=== PATIENT | female | born 1945 | race Caucasian/White ===

== ENCOUNTER 2022-10-22 09:48 | Inpatient (IN) | payer MEDICARE, SELFPAY ==
[2022-10-22] VITALS (40 sets, daily range): BP systolic 100–162; BP diastolic 34–98; PULSE 61–136; RESP 3–134; TEMP 37.2–38.1; O2SAT 92–100; BMI 34.2
--- NOTE | 2022-10-22 | ECHO_ITS ---
Patient Info Name: Johana Long Age: 76 years : 1945 Gender: Female Ht: 70 in Wt: 218 lbs BSA: 2.24 m2 HR: 78 bpm BP: 140 / 91 mmHg Heart Rhythm: Atrial Fibrillation Technical Quality: Fair Exam Date: 10/22/2022 3:50 PM Exam Location: [facility] Pulmonary Exam Room: ICU7 Patient Status: Inpatient Admit Date: 10/22/2022 Staff Ordering Physician: Melinda Peñaloza MD [employer] Assistant Principal: Haydee Faye RDCS Attending Provider: Jodi Anderson MD Referring Physician: Anabela HARPER; Exam Type: CA echo dop color flow w con Study Info Indications - PULMONARY EDEMA Complete two-dimensional, color flow and Doppler transthoracic echocardiogram is performed with contrast to opacify the left ventricle and to improve the deliniation of the left ventricle endocardial borders. Contrast/Agitated Saline Amount: 2.00 ml Administered By: Haydee Faye [facility] Existing IV Access: Yes IV Access Condition: patent with no signs of infiltration Summary 1. Left ventricular chamber dimension is mildly enlarged. 2. Left ventricular systolic function is normal, estimated at 65-70%. 3. There is moderately increased left ventricular wall thickness. 4. The left ventricular diastolic function is indeterminate. 5. The basal anteroseptal, and mid anteroseptal are hypokinetic. 6. Left atrial chamber dimension is severely enlarged. 7. There is moderate aortic valve sclerosis. 8. There is mild to moderate mitral valve regurgitation. 9. There is mild tricuspid valve regurgitation. 10. Mild pulmonary hypertension, estimated pulmonary arterial systolic pressure is 38 mmHg. 11. There is mild pulmonic regurgitation. Left Ventricle Left ventricular chamber dimension is mildly enlarged. Left ventricular systolic function is normal, estimated at 65-70%. There is moderately increased left ventricular wall thickness. The left ventricular diastolic function is indeterminate. The basal anteroseptal, and mid anteroseptal are hypokinetic. All other horne appear normal. Right Ventricle Right ventricular chamber dimension is normal. Right ventricular systolic function is normal. Left Atria Left atrial chamber dimension is severely enlarged. Right Atria Right atrial chamber dimension is normal. Atrial Septum Intact interatrial septum visualized by color flow imaging. Aortic Valve The aortic valve is trileaflet. There is moderate aortic valve sclerosis. There is no aortic valve stenosis. There is trace aortic valve regurgitation. Pulmonic Valve The pulmonic valve is normal. There is no pulmonic valve stenosis. There is mild pulmonic regurgitation. Mitral Valve The mitral valve has thickened leaflets. There is no mitral valve stenosis. There is mild to moderate mitral valve regurgitation. Tricuspid Valve The tricuspid valve leaflets are normal. There is no significant tricuspid valve stenosis. There is mild tricuspid valve regurgitation. Mild pulmonary hypertension, estimated pulmonary arterial systolic pressure is 38 mmHg. Pericardium/Pleural The pericardium appears normal. There is no pericardial effusion. Inferior Vena Cava Normal inferior vena cava with <50% collapse upon inspiration consistent with elevated right atrial pressure, 10 mmHg. Aorta The aortic root size at the sinus of Valsalva is normal. Left Ventricular Outflow Tract Name Value Normal
--- NOTE | ~2022-10-22 | XR_ITS ---
EXAMINATION: XR chest 1V portable INDICATION: Respiratory failure TECHNIQUE: Portable AP chest at 0525 hours COMPARISON: 10/30/2022 FINDINGS: A right upper extremity PICC ends with its tip at the superior cavoatrial junction. A mild diffuse interstitial pattern persists with interval improvement. There is a small right pleural effus ion. No pneumothorax is identified. Left basilar airspace opacities are stable. The cardiomediastinal silhouette is unchanged. IMPRESSION: 1. Mild pulmonary edema with interval improvement. 2. Small right pleural effusion. 3. Left basilar airspace opacity, consistent with atelectasis versus pneumonia. Reviewed, dictated and finalized at location A.
--- NOTE | ~2022-10-22 | XR_ITS ---
EXAMINATION: XR chest PICC line INDICATION: Assess PICC position TECHNIQUE: Portable AP chest at 1256 hours COMPARISON: 0546 hours FINDINGS: The endotracheal tube ends approximately 2.4 cm above the shannan. The nasogastric tube is f ollowed as far as the stomach. Its tip is beyond the inferior margin of the radiograph. The right upp er extremity PICC loops in the right internal jugular vein and the tip is now seen within the interna l jugular vein. There are small pleural effusions. Cardiomegaly is noted. A mild diffuse interstitial pattern is stable. Bibasilar airspace opacities are also stable. IMPRESSION: 1. Right upper extremity PICC looping in the distal internal jugular vein with its tip now retracted into the internal jugular vein. 2. Small pleural effusions with associated bibasilar airspace opacities, atelectasis versus pneumonia . 3. Cardiomegaly with stable mild pulmonary edema. Reviewed, dictated and finalized at location A. IMPRESSION: 1. Right upper extremity PICC looping in the distal internal jugular vein with its tip now retracted into the internal jugular vein. 2. Small pleural effusions with associated bibasilar airspace opacities, atelec tasis versus pneumonia. 3. Cardiomegaly with stable mild pulmonary edema.
--- NOTE | ~2022-10-22 | XR_ITS ---
XR chest 1V portable 10/22/2022 11:09 Indication: Apnea Procedure: AP portable chest Comparison: No prior studies for comparison. Findings: Endotracheal tube tip at the shannan. NG tube in the stomach. Cardiomegaly with pulmonary ed andrew. Small right pleural effusion. No pneumothorax. Impression: 1: Cardiomegaly with pulmonary edema. 2: A small right pleural effusion. 3: Endotracheal tube at the shannan. Recommend retraction 4 cm. Reviewed, dictated and finalized at location B. Impression: 1: Cardiomegaly with pulmonary edema. 2: A small right pleural effusion. 3: Endotracheal tube at the shannan. Recommend retraction 4 cm.
--- NOTE | ~2022-10-22 | XR_ITS ---
EXAMINATION: XR chest 1V portable DATE: 10/27/2022 06:59 INDICATION: Acute respiratory failure. TECHNIQUE: A single frontal view of the chest was obtained. COMPARISON: Chest single view 10/26/2022, chest CT 10/17/2022 FINDINGS: A calcified right lung nodule and calcified right hilar lymph nodes are consistent with old granulomatous disease. There are airspace opacities in right mid and lower lung zones and left lower lung zone. There are small pleural effusions. No pneumothorax. Cardiomegaly is noted. The endotrache al tube tip is 2.9 cm above the shannan. The nasogastric tube tip is in the stomach. A right upper ext remity peripherally inserted central venous catheter (PICC) is seen with tip at the superior cavoatri al junction. IMPRESSION: 1. Airspace opacities in right mid and lower lung zones and left lower lung zone with improvement on the right, consistent with atelectasis versus pneumonia. 2. Stable small pleural effusions. 3. Cardiomegaly. Reviewed, dictated and finalized at location A. IMPRESSION: 1. Airspace opacities in right mid and lower lung zones and left lower lung zon e with improvement on the right, consistent with atelectasis versus pneumonia. 2. Stable small pleural effusions. 3. Cardiomegaly.
--- NOTE | ~2022-10-22 | XR_ITS ---
EXAMINATION: XR chest PICC line Exam Date/Time: 10/25/2022 16:21 CDT HISTORY: placement follow up Comparison: Same date at 12:56 PM. RESULT: Lines, tubes, and devices: Replacement/repositioning of the right upper extremity PICC, tip is somew hat difficult to visualize but appears to be in the distal SVC. Endotracheal tube terminates 2.8 cm a chantal the shannan. Subdiaphragmatic NG tube. Lungs and pleura: Persistent bilateral costophrenic angle blunting and patchy areas of subsegmental bibasilar airspace disease. Cardiomediastinal silhouette: Stable. Other: No acute osseous or upper abdominal finding. IMPRESSION: Right upper extremity PICC, in good position. Stable endotracheal and NG tubes. Unchanged bibasilar a telectasis/consolidation. Slightly improved interstitial edema and bilateral effusions, may reflect c hange in positioning. Reviewed, dictated and finalized at location K. IMPRESSION: Right upper extremity PICC, in good position. Stable endotracheal and NG tubes. Unchanged bibasilar atelectasis/consolidation. Slightly improved interstitial edema and bilateral effusions, may reflect change in positioning.
--- NOTE | ~2022-10-22 | CT_ITS ---
EXAMINATION: CT brain wo con DATE: 10/22/2022 11:53 INDICATION: Unresponsive. TECHNIQUE: Computed tomography (CT) of the head was performed without intravenous contrast. The mA wa s adjusted according to patient size. Iterative reconstruction technique was employed. The dose-lengt h product was 681.00 mGy-cm. COMPARISON: None FINDINGS: There is no intracranial hemorrhage, acute infarction, or abnormal intracranial mass lesion . The ventricles are normal in size. There is mucosal thickening in the paranasal sinuses with thicke adwoa and sclerosis of the horne of sphenoid sinus, consistent with chronic sinusitis. The mastoid air cells are normal. There are likely changes of ocular lens replacement surgeries. Endotracheal and or ogastric tubes are noted. IMPRESSION: 1. Normal brain. 2. Chronic sinusitis. Reviewed, dictated and finalized at location A.
--- NOTE | ~2022-10-22 | US_ITS ---
EXAMINATION: US thoracentesis DATE: 10/28/2022 16:43 INDICATION: Right pleural effusion TECHNIQUE: The procedure and its risks and benefits were discussed with the patient. Potential risks discussed included bleeding, infection, and pneumothorax. The patient understood the risks and agreed to proceed. The skin was prepped and draped in sterile fashion. 1% lidocaine was used for local anes thesia. Under ultrasound guidance, a 5 Fr catheter with trochar was advanced into the right pleural e ffusion. Fluid was aspirated. The catheter was removed, and a dressing was applied. There were no imm ediate complications. FINDINGS: Ultrasound images demonstrate a small right pleural effusion and the catheter within the fluid. IMPRESSION: 1. Successful ultrasound-guided thoracentesis yielding 350 mL of dark reddish fluid. Reviewed, dictated and finalized at location A.
--- NOTE | ~2022-10-22 | CT_ITS ---
EXAMINATION: CT diagnostic chest wo con DATE: 10/29/2022 16:19 INDICATION: ? chf TECHNIQUE: Computed tomography (CT) of the chest was performed without intravenous contrast. Addition al 3D reconstructions utilizing coronal maximum intensity projection (MIP) were performed. Automated exposure control and iterative reconstruction technique were employed. The dose-length product was 51 2.58 mGy-cm. COMPARISON: 10/17/2022 FINDINGS: Small posterior layering pleural effusion with compressive atelectasis in the dependent right lower l obe. Trace left pleural effusion and minimal atelectasis in the dependent left lower lobe and lingula . Large calcified right lower lobe nodule along with calcified right hilar lymph nodes and multiple s plenic calcifications, all consistent with old granulomatous disease. No pneumonia, pulmonary edema o r pneumothorax. Cardiomegaly. Aortic valve calcification. No pericardial effusion. Right upper extrem ity peripherally inserted central venous catheter (PICC) tip at the superior cavoatrial junction. Th oracic aorta is normal in caliber. No pathologically enlarged thoracic lymphadenopathy. Small amount of bubbly mucus in the dependent trachea. Visualized portion of the upper abdomen is unremarkable. Sanchez ture anchor at the left humeral head which could be related to either prior rotator cuff repair with bicipital tenodesis. Severe thoracic spondylosis with anterior fusion at T6-T8. IMPRESSION: 1. Small right and trace left pleural effusions with associated atelectasis in the dependent lungs, r ight greater than left. 2. Cardiomegaly. Reviewed, dictated and finalized at location A. IMPRESSION: 1. Small right and trace left pleural effusions with associated atelectasis in the dependent lungs, right greater than left. 2. Cardiomegaly.
--- NOTE | ~2022-10-22 | XR_ITS ---
EXAMINATION: XR chest 1V portable INDICATION: Respiratory failure TECHNIQUE: Portable AP chest at 0546 hours COMPARISON: 10/24/2022 FINDINGS: The endotracheal tube ends approximately 2.6 cm above the shannan. The nasogastric tube is f ollowed as far as the stomach. Its tip is beyond the inferior margin of the radiograph. A right upper extremity PICC is again seen with a small portion of the catheter looped in the right internal jugul ar vein and the tip ending in the right brachiocephalic vein. Bibasilar airspace opacities persist wi th slight worsening on the left. There is no pneumothorax. Cardiomegaly is noted. A mild diffuse inte rstitial pattern is unchanged. IMPRESSION: 1. Cardiomegaly with stable pulmonary edema. 2. Small pleural effusions, with slight worsening on the left, and associated bibasilar airspace opac ities, atelectasis versus pneumonia. 3. Right upper extremity PICC with a short segment looped in the distal internal jugular vein and its tip ending in the brachiocephalic vein. Reviewed, dictated and finalized at location A. IMPRESSION: 1. Cardiomegaly with stable pulmonary edema. 2. Small pleural effusions, with slight worsening on the left, and associated b ibasilar airspace opacities, atelectasis versus pneumonia. 3. Right upper extremity PICC with a short segment looped in the distal interna l jugular vein and its tip ending in the brachiocephalic vein.
--- NOTE | ~2022-10-22 | XR_ITS ---
Portable chest x-ray Comparison: 10/29/2022 Clinical History: Respiratory failure Findings: Right-sided PICC line is in place. There is central congestive change and probable mild pu lmonary edema pattern. Stable calcified right basilar pulmonary nodule. Cardiomediastinal silhouette is stable. Bones and soft tissues are unremarkable. Impression: Central congestive change and mild pulmonary edema. Right-sided PICC line in place. Reviewed, dictated and finalized at location . Impression: Central congestive change and mild pulmonary edema. Right-sided PICC line in place.
--- NOTE | ~2022-10-22 | XR_ITS ---
Portable chest x-ray Comparison: 10/23/2022 Clinical History: Respiratory failure Findings: Endotracheal tube, NG tube, and right-sided PICC line are in place. Small to moderate righ t pleural effusion is present. There is mild to moderate pulmonary edema pattern. Cardiomediastinal silhouette is stable. Bones and soft tissues are unremarkable. Impression: Mild to moderate pulmonary edema pattern with small to moderate right pleural effusion. Support tubes, as above. Reviewed, dictated and finalized at location . Impression: Mild to moderate pulmonary edema pattern with small to moderate right pleural e ffusion. Support tubes, as above.
--- NOTE | ~2022-10-22 | XR_ITS ---
EXAMINATION: XR chest 1V portable DATE: 10/28/2022 05:50 INDICATION: Respiratory failure. Pulmonary edema. TECHNIQUE: A single frontal view of the chest was obtained. COMPARISON: Chest single view 10/27/2022 FINDINGS: A calcified right lung nodule is consistent with old granulomatous disease. There is a diff use interstitial pattern in the lungs, consistent with mild pulmonary edema. There are airspace opaci ties at the lung bases. There is a small right pleural effusion. No pneumothorax. Cardiomegaly is not ed. A right upper extremity peripherally inserted central venous catheter (PICC) is seen with tip at the superior cavoatrial junction. The endotracheal tube tip is 3.4 cm above the shannan. The nasogastr ic tube tip is in the stomach. There is a suture anchor in left humeral head. IMPRESSION: 1. Mild pulmonary edema. 2. Stable airspace opacities of the lung bases, consistent with atelectasis or less likely pneumonia. 3. Stable small right pleural effusion. 4. Cardiomegaly. Reviewed, dictated and finalized at location A.
--- NOTE | ~2022-10-22 | XR_ITS ---
EXAMINATION: XR chest 1V portable DATE: 10/29/2022 06:34 INDICATION: Respiratory failure. Pulmonary edema. TECHNIQUE: A single frontal view of the chest was obtained. COMPARISON: Chest single view 10/28/2022, chest CT 10/17/2022 FINDINGS: A calcified right lung nodules consistent with old granulomatous disease. There are airspac e opacities in left lower lung zone. There is a small right pleural effusion. No pneumothorax. Cardio megaly is noted. A right upper extremity peripherally inserted central venous catheter (PICC) is seen with tip at the superior cavoatrial junction. There is a suture anchor left humeral head. IMPRESSION: 1. Stable airspace opacities in left lower lung zone, consistent with atelectasis versus pneumonia. 2. Stable small right pleural effusion. 3. Cardiomegaly. Reviewed, dictated and finalized at location A. IMPRESSION: 1. Stable airspace opacities in left lower lung zone, consistent with atelectas is versus pneumonia. 2. Stable small right pleural effusion. 3. Cardiomegaly.
--- NOTE | ~2022-10-22 | XR_ITS ---
Portable chest x-ray Comparison: 10/22/2022 Clinical History: Respiratory failure Findings: Endotracheal tube and NG tube are in satisfactory positions. Small right pleural effusion is present. There is probable minimal bibasilar pulmonary edema. Cardiomediastinal silhouette is sta ble. Bones and soft tissues are unremarkable. Impression: Small right pleural effusion with probable minimal bibasilar pulmonary edema. Support tubes, as above. Reviewed, dictated and finalized at location . Impression: Small right pleural effusion with probable minimal bibasilar pulmonary edema. Support tubes, as above.
--- NOTE | ~2022-10-22 | XR_ITS ---
EXAMINATION: XR chest 1V portable INDICATION: Acute respiratory failure TECHNIQUE: Portable AP chest at 0517 hours COMPARISON: 10/25/2022 FINDINGS: The endotracheal tube ends approximately 3.3 cm above the shannan. The nasogastric tube is f ollowed as far as the stomach. Its tip is beyond the inferior margin of the radiograph. A right upper extremity PICC ends with its tip in the distal superior vena cava. There are stable bilateral pleura l effusions. No pneumothorax is identified. Cardiomegaly is noted. There are persistent bibasilar air space opacities. In addition, there are diffuse opacities throughout the right lung. IMPRESSION: 1. Cardiomegaly with stable pulmonary edema. 2. Stable pleural effusions with associated bibasilar airspace opacities, atelectasis versus pneumoni a. Reviewed, dictated and finalized at location A. IMPRESSION: 1. Cardiomegaly with stable pulmonary edema. 2. Stable pleural effusions with associated bibasilar airspace opacities, atele ctasis versus pneumonia.
--- NOTE | ~2022-10-22 | XR_ITS ---
EXAMINATION: XR chest 1V portable DATE: 10/24/2022 18:54 INDICATION: Shortness of breath TECHNIQUE: frontal view of the chest was obtained. COMPARISON: Chest radiograph dated 10/24/22 FINDINGS: Endotracheal tube tip 3.0 cm above the shannan. Nasogastric tube extends into the stomach with proxima l side-port below level of the gastroesophageal junction. Right upper extremity peripherally inserted central venous catheter (PICC) tip of which is withdrawn slightly with its tip now at the right brac hiocephalic vein and a small portion of the catheter looped in the caudal right internal jugular vein . Opacities in the bilateral lower lung zones, right greater than left. Small right and tiny left pleur al effusions. No pneumothorax. Large calcified nodule in the right lower lung zone along with calcifi ed right hilar lymph nodes consistent with old granulomatous disease. Cardiomegaly with pulmonary vas cular congestion. IMPRESSION: 1. Opacities in the bilateral lower lung zones consistent with small right and very small left pleura l effusions with associated atelectasis and/or pneumonia. 2. Cardiomegaly with pulmonary vascular congestion but without [place] pulmonary edema. 3. Right upper 70 PICC line now loops a short distance into the right internal jugular vein with dist al tip withdrawn into the right brachiocephalic vein. Reviewed, dictated and finalized at location A. IMPRESSION: 1. Opacities in the bilateral lower lung zones consistent with small right and very small left pleural effusions with associated atelectasis and/or pneumonia. 2. Cardiomegaly with pulmonary vascular congestion but without [place] pulmonary edema. 3. Right upper 70 PICC line now loops a short distance into the right internal jugular vein with distal tip withdrawn into the right brachiocephalic vein.
--- NOTE | 2022-10-22 10:05 | PC.NURSE ---
1005 etomidate 30 mg ivp accu check 260 1006 succ 150 mg ivp 1008 7.0 et tube placed with assistance of bougie and visualization 25 at teeth positive color change breath sounds noted throughout lung ramirez
--- NOTE | 2022-10-22 10:12 | ECG_ITS ---
Measurements Intervals [place] Rate: 107 P: KS: 0 QRS: -17 QRSD: 119 T: 125 QT: 354 QTc: 474 Interpretive Statements ATRIAL FLUTTER/TACHYCARDIA WITH RAPID VENTRICULAR RESPONSE RSR' IN V1 OR V2, CONSIDER RIGHT VENTRICULAR HYPERTROPHY OR RIGHT VCD LEFT VENTRICULAR HYPERTROPHY AND ST-T CHANGE CONSIDER HIGH LATERAL INFARCT, AGE INDETERMINATE ABNORMAL ECG NO PREVIOUS ECG AVAILABLE FOR COMPARISON Electronically Signed On 10-22-2022 10:31:25 CDT by Abdullahi Mcmahon D.O.
[2022-10-22] MEDS: PROPOFOL IV EMULSION 100 ML 2.97 MG IV CONT (10:36)
[2022-10-22] MEDS: SODIUM CHLORIDE 0.9% IV 1,000 ML 999 ML IV CONT (10:36)
[2022-10-22 10:37] LABS: Alveolar/Arterial O2 Gradient 353.2 mmHg; Base Excess ABG 7.8 mEq/l (+/-2.0); Fractional Inspired Oxygen 100 %; HCO3 ABG 36.4 mEq/l (22.0-26.0); Oxygen Content ABG 15.9 %vol (16.0-22.0); Oxygen Saturation ABG 99.6 % (95.0-100.0); Oxyhemoglobin 97.9 % THb (90.0-100.0); PO2 ABG 283.5 mmHg (80.0-100.0); PO2 FiO2 Ratio Arterial Blood 2.84 %
[2022-10-22 10:40] LABS: PCO2 ABG 76.3 mmHg (35.0-45.0); Site Drawn LEFT BRACHIAL; pH ABG 7.297 (7.350-7.450)
[2022-10-22 10:41] LABS: Device VENTILATOR
[2022-10-22 10:42] LABS: Arterial Blood Gas PEEP 5 cmH2O; Arterial Blood Gas Pressure Support 0 cmH2O; Arterial Blood Gas Tidal Volume 450 ml; Arterial Blood Gas Vent Mode CMV; Arterial Blood Gas Ventilator rate 16 /MIN
--- NOTE | 2022-10-22 10:42 | ED.AMS ---
HPI - Altered Mental Status General Chief Complaint: Altered Mental Status Stated Complaint: unresponsive Time Seen by Provider: 10/22/22 10:12 History of Present Illness HPI narrative: [facility] for [facility]. Pt went into respiratory arrest in route and was being bagged on arrival. Pt recently admitted to ICU here for similar episode and was intubated after respiratory failure for CHF/pulmonary edema Related Data Home Medications Medication Instructions Recorded Confirmed Bifidobacterium infantis 4 mg 4 mg PO DAILY 10/13/22 10/22/22 capsule (Align) albuterol sulfate 90 mcg/actuation 2 puff inhalation QID PRN sob 10/13/22 10/22/22 aerosol inhaler (Ventolin HFA) amlodipine 5 mg tablet 5 mg PO DAILY 10/13/22 10/22/22 aspirin 81 mg tablet,delayed 81 mg PO DAILY 10/13/22 10/22/22 release atorvastatin 40 mg tablet 40 mg PO DAILY 10/13/22 10/22/22 cholecalciferol (vitamin D3) 125 125 mcg PO DAILY 10/13/22 10/22/22 mcg (5,000 unit) tablet citalopram 10 mg tablet 10 mg PO DAILY 10/13/22 10/22/22 fluticasone 113mcg-salmeterol 1 inh inhalation BID 10/13/22 10/22/22 14mcg/actuation breath act,powder sensor glimepiride 2 mg tablet 2 mg PO DAILY 10/13/22 10/22/22 hydrocodone 7.5 mg-acetaminophen 1 tablet PO Q6H PRN Pain 10/13/22 10/22/22 325 mg tablet magnesium 200 mg tablet 400 mg PO DAILY 10/13/22 10/22/22 multivitamin,tx-minerals 1 tablet PO DAILY 10/13/22 10/22/22 nitrofurantoin 100 mg PO Q12H 10/13/22 10/22/22 monohydrate/macrocrystals 100 mg capsule omeprazole 20 mg capsule,delayed 20 mg PO Q48H 10/13/22 10/22/22 release oxybutynin chloride 10 mg 10 mg PO DAILY 10/13/22 10/22/22 tablet,extended release 24 hr pioglitazone 30 mg tablet 30 mg PO DAILY 10/13/22 10/22/22 furosemide 40 mg tablet 20 mg PO DAILY 10/22/22 10/22/22 Allergies Allergy/AdvReac Type Severity Reaction Status Date / Time metformin Allergy Unknown Photosensit Verified 10/11/22 15:28 ivity ciprofloxacin AdvReac Nausea Verified 10/11/22 15:30 Sulfa (Sulfonamide AdvReac Itching Verified 10/11/22 15:30 Antibiotics) Review of Systems Review of Systems: ROS unobtainable: Yes unobtainable due to medical condition PMFSH Social History Social History Smoking status: Never smoker Second hand tobacco smoke exposure: No Alcohol intake: never Substance use: never Lack of Transportation: No Lack of Food: Never True Current Housing: I Have Housing Concerned About Future Housing: No Difficulty Paying Gas/Electric Bills: No Difficulty Paying for Meds: No Currently Unemployed: No Education: Don't Know Difficulty w/ Childcare or Family Care: No Spiritual care concerns: No Exam Const: General: ill appearing Nutritional Appearance: obese Limitations: altered mental status Other: pt not breathing on arrival being bagged unresponsive HENMT: Mouth: Yes Normal oral and palatal mucosa present Throat: posterior oropharynx normal Neck: Neck: normal visual inspection and no lymphadenopathy Chest: Chest palpation & inspection: normal inspection of the chest Resp: Auscultation: crackles (with bagged respirations) Cardio: Rate: tachycardic Rhythm: abnormal rhythm GI: GI Palp: Yes Soft to palpation Skin: General skin exam: normal color Rashes: no rashes Neuro: Other: unresponsive Extrem: General: no clubbing, cyanosis or edema Psych: Other: unresponsive Course Vital Signs Vital signs: Vital Signs Pulse Rate 129 H 10/22/22 09:50 Respiratory Rate 3 L 10/22/22 09:50 Blood Pressure 126/82 10/22/22 09:50 Pulse Oximetry 100 10/22/22 09:50 Oxygen Delivery Bag Valve Mask 10/22/22 09:50 Temperature 99.0 F 10/22/22 16:00 Pulse Rate 98 10/22/22 16:44 Respiratory Rate 22 H 10/22/22 16:27 Blood Pressure 108/59 L
[2022-10-22 10:45] LABS: Glucose Point of Care 260 mg/dl (65-105)
--- NOTE | 2022-10-22 10:55 | PC.NURSE ---
Pt restless, biting the tube appears uncomfortable VORB 50mg Propofol bolus
--- NOTE | 2022-10-22 11:00 | PC.NURSE ---
Pt still restless, moving, biting tube. VORB 50mg Propofol given
[2022-10-22 11:15] LABS: Basophils Percent Auto 0.3 % (0.2-1.2); Eosinophils Percent Auto 0.4 % (0-4.4); Hematocrit 33.1 % (37.0-47.0); Immature Granulocyte Absolute 0.04 K/mm3 (0.00-0.031); Immature Granulocyte Percent A 0.5 % (0-0.5); Lymphocytes Absolute Auto 0.16 K/mm3 (0.9-3.2); Lymphocytes Percent Auto 2.1 % (18.3-44.2); Mean Corpuscular HGB Conc 30.2 g/dl (32-36); Mean Corpuscular Hemoglobin 32.2 pg (26-34); Mean Corpuscular Volume 106.4 fl (80-100); Monocytes Absolute Auto 0.5 K/mm3 (0.1-0.6); Monocytes Percent Auto 6.6 % (2.6-8.5); Neutrophils Percent Auto 90.1 % (45.5-73.1); Platelet Count Result 181 k/mm3 (150-375); Red Blood Count 3.11 M/mm3 (4.2-5.4); Red Cell Distribution Width 16.1 % (11.5-14.5); White Blood Count 7.8 K/mm3 (4.5-10.0)
[2022-10-22 11:27] LABS: INR 1.6; Prothrombin Time 19.8 Seconds (11.1-14.7)
[2022-10-22 11:28] LABS: Alanine Aminotransferase 20 U/L (6-35); Albumin Level 3.9 g/dL (3.5-5.1); Alkaline Phosphatase 66 U/L (38-126); Aspartate Amino Transferase 24 U/L (14-36); Bilirubin,Total 0.8 mg/dL (0.2-1.3); Blood Urea Nitrogen 38 mg/dL (7-17); Calcium 8.8 mg/dL (8.4-10.2); Carbon Dioxide > 40 mmol/L (22-30); Chloride 93 mmol/L (98-107); Estimated CRCL calculation 44 ml/min; Estimated Glomerular Filt Rate 43; Glucose 262 mg/dL (65-110); Partial Thromboplastin Time 32.6 SECONDS (22.3-36.8); Potassium 5.2 mmol/L (3.4-5.0); Sodium 138 mmol/L (137-145)
[2022-10-22] MEDS: FUROSEMIDE INJ 40 MG/4 ML VIAL IV PUSH (11:29)
[2022-10-22] MEDS: MIDAZOLAM HCL (*CRX) 2 MG/2 ML VIAL 4 MG IV PUSH (11:29)
[2022-10-22 11:32] LABS: Add Urine Microscopic? YES; Appearance Urine Clear (Clear); Bacteria Urine None Seen /hpf; Bilirubin Urine Negative (Negative); Blood Urine Negative (Negative); Color Urine Yellow (Yellow); Glucose Urine UA Negative (Negative); Granular Casts Urine Present /lpf; Ketones Urine Negative (Negative); Leukocyte Esterase Ur Negative LEU/UL (Negative); Nitrate Urine Negative (Negative); Protein Urine 1+ mg/dL (Negative); RBC Urine 0-2 /hpf (0-2); Specific Grav Ur 1.016 (1.001-1.035); Squamous Epithelial Cell Urine Occasional /hpf (Few); Urobilinogen Urine 0.2 mg/dL (<2.0); WBC Urine 0-5 /hpf; pH Urine 5.5 (5.0-9.0)
[2022-10-22 11:42] LABS: Troponin I 0.047 ng/mL (0.000-0.034)
[2022-10-22 11:50] LABS: Acanthocytes 1+ (NORMAL); Basophilic Stippling 1+ (NORMAL); Burr Cells 1+ (NORMAL); Platelet Estimate Adequate (Adequate); Poikilocytosis 2+ (NORMAL); Schistocytes Rare (NORMAL)
[2022-10-22 11:59] LABS: Lactic Acid Reflex 1.7 mmol/L (0.7-2.0)
[2022-10-22 12:33] LABS: NT Pro B Type Natriuretic Pept 3120 pg/mL (19.9-100)
--- NOTE | 2022-10-22 13:21 | PM.IMHP ---
H&P: HPI History of Present Illness Date/Time: 10/22/22 13:21 Chief Complaint: AMS Narrative: Johana Long is a 76 year old female past medical history of CHF, COPD, chronic kidney disease, diabetes, anxiety, endometriosis, knee pain, benign breast mass x2, DVT, back pain, left hip pain, hyperlipidemia, essential hypertension urinary incontinence, recently admitted at [facility] with respiratory failure secondary to pneumonia, CHF requiring intubation, antibiotics from 09/29/2022 to 10/11/2022.? Patient presented the ED at [facility] on 10/22/2022 after she was found with altered mental status at [facility], EMS was called and patient was in respiratory arrest upon arrival of the EMS, she was being bagged and brought to the ED at [facility].? She was immediately intubated due to encephalopathy and apnea.? She was started on propofol infusion, chest x-ray showed pulmonary edema for which she was given Lasix 40 mg IV x1.? Patient also given 1 L IV fluid bolus prior to chest x-ray results.? Mild elevation in troponins, EKG showed atrial fibrillation with RVR,.? CT brain did not show any acute intracranial abnormality.? Chest x-ray showed pulmonary edema.? CT scan of the chest without contrast showed minimal right pleural effusion, cardiomegaly, large calcified right basilar granuloma.? WBC was 7.8, hemoglobin 10.0 which is her baseline, platelets 181, MCV of 1 was 6.4.? INR of 1.6.? Sodium 138, potassium 5.2, CO2 > 40, BUN 38, creatinine 1.20, blood sugars 262 lactic of 1.7, LFTs are within normal limits, troponin 0.047 x 1, proBNP 3120.? UA was unremarkable.? Influenza, RSV and COVID-19.? Patient was started on cefepime and vancomycin.? Transferred to the ICU for further management. Review of Systems Review of Systems: All systems reviewed & are unremarkable except as noted in HPI and below ROS unobtainable: Yes unobtainable due to endotracheal tube and unobtainable due to mental status PMF Social History Social History Smoking status: Never smoker Second hand tobacco smoke exposure: No Alcohol intake: never Substance use: never Spiritual care concerns: No Meds Home Medications and Allergies Home Medications Medication Instructions Recorded Confirmed Type Bifidobacterium infantis 4 mg 4 mg PO DAILY 10/13/22 10/13/22 History capsule (Align) albuterol sulfate 90 mcg/actuation 2 puff inhalation QID PRN sob 10/13/22 10/13/22 History aerosol inhaler (Ventolin HFA) amlodipine 5 mg tablet 5 mg PO DAILY 10/13/22 10/13/22 History aspirin 81 mg tablet,delayed 81 mg PO DAILY 10/13/22 10/13/22 History release atorvastatin 40 mg tablet 40 mg PO DAILY 10/13/22 10/13/22 History cholecalciferol (vitamin D3) 125 125 mcg PO DAILY 10/13/22 10/13/22 History mcg (5,000 unit) tablet citalopram 10 mg tablet 10 mg PO DAILY 10/13/22 10/13/22 History fluticasone 113mcg-salmeterol 1 inh inhalation BID 10/13/22 10/13/22 History 14mcg/actuation breath act,powder sensor glimepiride 2 mg tablet 2 mg PO DAILY 10/13/22 10/13/22 History hydrocodone 7.5 mg-acetaminophen 1 tablet PO Q6H PRN Pain 10/13/22 10/13/22 History 325 mg tablet magnesium 200 mg tablet 400 mg PO DAILY 10/13/22 10/13/22 History multivitamin,tx-minerals 1 tablet PO DAILY 10/13/22 10/13/22 History nitrofurantoin 100 mg PO Q12H 10/13/22 10/13/22 History monohydrate/macrocrystals 100 mg capsule omeprazole 20 mg capsule,delayed 20 mg PO Q48H 10/13/22 10/13/22 History release oxybutynin chloride 10 mg 10 mg PO DAILY 10/13/22 10/13/22 History tablet,extended release 24 hr pioglitazone 30 mg tablet 30 mg PO DAILY 10/13/22 10/13/22 History Allergies Allergy/AdvReac Type Severity Reaction Status Date / Time metformin Allergy Unknown Photosensit Verified 10/11/22 15:28 ivity ciprofloxacin AdvReac Nausea Verified 10/11/22 15:30 Sulfa (Sulfonamide AdvReac Itc
[2022-10-22 13:45] LABS: Influenza A QL RT-PCR Negative (Negative); Influenza B QL RT-PCR Negative (Negative); RSV RNA, RT-PCR Negative (Negative); SARS-CoV-2 RNA PCR Negative (Negative)
--- NOTE | 2022-10-22 13:55 | PC.NURSE ---
This patient, Johana Long, was admitted to Intensive Care Unit-7. Patient/family oriented to hospital policies and general routines including ID bracelet, bed and alarms, visiting hours, pain management, procedures, bathroom and other care routines, personal items, smoking policy, room service/diet, and visiting hours. Information on how to activate the Rapid Response Team has been discussed. Patient/Family are encouraged to report perceived risks to care and to ask questions if they do not understand what they are told or what they should do.
--- NOTE | 2022-10-22 13:59 | WPDCNINT ---
Assessment and Plan Assessment and plan (1) Acute respiratory failure with hypoxia: Code(s): J96.01 - Acute respiratory failure with hypoxia Status: Acute Assessment and Plan: Acute respiratory failure likely related to CHF exacerbation and/or COPD exacerbation, AFib RVR -patient's initial gas hypercapnic respiratory acidosis -I made some vent changes, will recheck ABGs -currently on CMV mode of ventilation, peep of 5 and 50% FiO2, wean FiO2 to maintain O2 sats greater than 92% -chest x-ray on admission showed Cardiomegaly with pulmonary edema.: A small right pleural effusion.? Endotracheal tube at the shannan. Recommend retraction 4 cm -start bronchodilators, pulmicort -sedated with propofol, will add fentanyl for analgesia, maintain RASS of 0 to -1, daily SAT and SBT -patient started on cefepime and vancomycin (10/22) as she was recently admitted to the hospital at [facility] for pneumonia she has been in a rehab 10/12/2022 -10/22 CT chest noncontrast There is no evidence of any significant mediastinal, hilar or axillary lymphadenopathy. The mediastinal soft tissues appear normal. Cardiomegaly noted. No pericardial effusion. Minimal right pleural effusion present. Large calcified right basilar granuloma present. There is mild left basilar scarring. Images through the upper abdomen reveal calcified splenic granulomas. Impression: Minimal right pleural effusion. Cardiomegaly. (2) Afib: Code(s): I48.91 - Unspecified atrial fibrillation Status: Acute Assessment and Plan: Patient has a history of AFib, on apixaban at the rehab center -will continue apixaban -will add per tube metoprolol scheduled and metoprolol IV p.r.n.. (3) Encephalopathy: Code(s): G93.40 - Encephalopathy, unspecified Status: Acute Assessment and Plan: Encephalopathy likely related to hypercapnia, hypoxia -currently on mechanical ventilation, adequate oxygenation on ABGs -off sedation patient did open her eyes and follows simple commands in all extremities (4) Type 2 diabetes mellitus: Code(s): E11.9 - Type 2 diabetes mellitus without complications Status: Acute Assessment and Plan: Will start Accu-Cheks and sliding scale insulin -check hemoglobin A1c (5) CHF (congestive heart failure): Code(s): I50.9 - Heart failure, unspecified Status: Acute Assessment and Plan: Patient presented with acute respiratory failure, chest x-ray showed pulmonary edema -patient given Lasix with good response -will check echocardiogram (6) GERD (gastroesophageal reflux disease): Code(s): K21.9 - Gastro-esophageal reflux disease without esophagitis Status: Acute Assessment and Plan: Started on Protonix (7) Hyperlipidemia: Code(s): E78.5 - Hyperlipidemia, unspecified Status: Acute Assessment and Plan: Continue atorvastatin (8) Hypertension: Code(s): I10 - Essential (primary) hypertension Status: Acute Assessment and Plan: Patient history of essential hypertension, patient on metoprolol -monitor blood pressures (9) COPD (chronic obstructive pulmonary disease): Code(s): J44.9 - Chronic obstructive pulmonary disease, unspecified Status: Acute Assessment and Plan: History of COPD currently on mechanical ventilation -continue bronchodilators (10) Anxiety: Code(s): F41.9 - Anxiety disorder, unspecified Status: Acute Assessment and Plan: Patient on escitalopram at home, will restart once she is off propofol due to QT prolongation issues Plan DVT prophylaxis: Apixaban Stress ulcer prophylaxis: Protonix Nutrition: Will start tube feeds in a.m. Code Status: Full code Critical Care Time Spent: 55 minutes Discussed with patient's daughter Chio and Damien at bedside and updated with patient's condition and plan of care, they are aware that patient is going to remain intubated toda
[2022-10-22] MEDS: PERFLUTREN LIPID MICROSPHERES 1.5 ML VIAL DILUTED TO 10 ML TOTAL VOLUME IV PUSH (14:16)
[2022-10-22] MEDS: FENTANYL 2,500MCG/NS250ML(*CRX 2,500 MCG/250 ML BAG IV CONT (14:22)
[2022-10-22] MEDS: VANCOMYCIN 1,250 MG/NS 250 ML 1,250 MG/250 ML BAG 166.67 MG IVPB ×2 (14:23→15:55)
[2022-10-22 15:07] LABS: Alveolar/Arterial O2 Gradient 227.1 mmHg; Base Excess ABG 7.9 mEq/l (+/-2.0); Fractional Inspired Oxygen 50 %; Oxygen Content ABG 14.6 %vol (16.0-22.0); Oxygen Saturation ABG 97.5 % (95.0-100.0); Oxyhemoglobin 96.2 % THb (90.0-100.0); PCO2 ABG 37.8 mmHg (35.0-45.0); PO2 ABG 86.9 mmHg (80.0-100.0); PO2 FiO2 Ratio Arterial Blood 1.74 %; Total Hemoglobin 10.7 g/dL (12.0-18.0)
[2022-10-22 15:10] LABS: Modified Allen's Test Pass; Site Drawn RIGHT RADIAL; pH ABG 7.532 (7.350-7.450)
[2022-10-22 15:11] LABS: Device VENTILATOR
[2022-10-22 15:12] LABS: Arterial Blood Gas PEEP 5 cmH2O; Arterial Blood Gas Vent Mode CMV; Arterial Blood Gas Ventilator rate 20 /MIN
[2022-10-22 15:13] LABS: Arterial Blood Gas Pressure Support 0 cmH2O; Arterial Blood Gas Tidal Volume 450 ml
[2022-10-22 15:30] LABS: Troponin I 0.056 ng/mL (0.000-0.034)
[2022-10-22 15:37] LABS: Triglycerides 145 mg/dL (<150)
[2022-10-22] MEDS: CEFEPIME 1 GM/NS 50 ML 1 GM/50 ML BAG IVPB ×2 (15:56→20:24)
[2022-10-22] MEDS: PROPOFOL IV EMULSION 100 ML 14.85 MG IV CONT (16:27)
[2022-10-22 17:16] LABS: Glucose Point of Care 277 mg/dl (65-105)
[2022-10-22] MEDS: INSULIN ASPART (*BKC) 100 UNITS/ML SUB-Q (17:17)
[2022-10-22] MEDS: IPRATROPIUM BR 0.02% INH SOLN 0.5 MG/2.5 ML VIAL INHALATION (20:30)
[2022-10-22] MEDS: LEVALBUTEROL NEB 1.25 MG/3 ML 0.63 MG INHALATION (20:30)
[2022-10-22] MEDS: BUDESONIDE RESPULE NEB 0.5 MG/2 ML AMP INHALATION (20:30)
[2022-10-22] MEDS: SENNA/DOCUSATE SODIUM TABLET 1 TAB PO (20:31)
[2022-10-22] MEDS: METOPROLOL TARTRATE 25 MG TABLET PO (20:31)
[2022-10-22] MEDS: ATORVASTATIN 40 MG TABLET PO (20:31)
[2022-10-22] MEDS: APIXABAN 5 MG TABLET PO (20:31)
[2022-10-22] MEDS: MINERAL OIL/WHITE PETROLATUM OINTMENT 1 APPLIC EACH EYE (20:34)
[2022-10-22 20:57] LABS: Troponin I 0.096 ng/mL (0.000-0.034)
[2022-10-22] MEDS: PROPOFOL IV EMULSION 100 ML 17.82 MG IV CONT (22:11)
[2022-10-22 23:28] LABS: Glucose Point of Care 152 mg/dl (65-105)
[2022-10-23] VITALS (40 sets, daily range): BP systolic 84–132; BP diastolic 37–64; PULSE 47–74; RESP 10–40; TEMP 36.3–38.1; O2SAT 93–98; BMI 34.2
[2022-10-23] MEDS: IPRATROPIUM BR 0.02% INH SOLN 0.5 MG/2.5 ML VIAL INHALATION ×4 (02:09→20:02)
[2022-10-23] MEDS: LEVALBUTEROL NEB 1.25 MG/3 ML 0.63 MG INHALATION ×4 (02:09→20:02)
[2022-10-23] MEDS: PROPOFOL IV EMULSION 100 ML 14.85 MG IV CONT (03:05)
[2022-10-23 05:49] LABS: Basophils Percent Auto 0.5 % (0.2-1.2); Eosinophils Absolute Auto 0.3 K/mm3 (0-0.3); Eosinophils Percent Auto 3.8 % (0-4.4); Hematocrit 29.7 % (37.0-47.0); Hemoglobin 9.1 g/dL (12.0-15.0); Immature Granulocyte Absolute 0.03 K/mm3 (0.00-0.031); Immature Granulocyte Percent A 0.4 % (0-0.5); Lymphocytes Absolute Auto 0.88 K/mm3 (0.9-3.2); Lymphocytes Percent Auto 11.5 % (18.3-44.2); Mean Corpuscular HGB Conc 30.6 g/dl (32-36); Mean Corpuscular Hemoglobin 31.3 pg (26-34); Mean Corpuscular Volume 102.1 fl (80-100); Mean Platelet Volume 10.9 fl (7.4-10.4); Monocytes Absolute Auto 0.9 K/mm3 (0.1-0.6); Monocytes Percent Auto 12.1 % (2.6-8.5); Neutrophils Absolute Auto 5.5 K/mm3 (1.3-6.7); Neutrophils Percent Auto 71.7 % (45.5-73.1); Platelet Count Result 152 k/mm3 (150-375); Red Blood Count 2.91 M/mm3 (4.2-5.4); Red Cell Distribution Width 15.6 % (11.5-14.5); White Blood Count 7.6 K/mm3 (4.5-10.0)
[2022-10-23 06:02] LABS: Alanine Aminotransferase 18 U/L (6-35); Albumin Level 3.6 g/dL (3.5-5.1); Alkaline Phosphatase 79 U/L (38-126); Aspartate Amino Transferase 19 U/L (14-36); Blood Urea Nitrogen 37 mg/dL (7-17); Calcium 8.6 mg/dL (8.4-10.2); Carbon Dioxide > 40 mmol/L (22-30); Chloride 93 mmol/L (98-107); Estimated CRCL calculation 39 ml/min; Estimated Glomerular Filt Rate 40; Glucose 166 mg/dL (65-110); Lactic Acid Reflex 1.2 mmol/L (0.7-2.0); Magnesium 2.2 mg/dL (1.6-2.3); Phosphorus 2.3 mg/dL (2.5-4.5); Potassium 3.3 mmol/L (3.4-5.0); Sodium 137 mmol/L (137-145)
[2022-10-23 06:21] LABS: Alveolar/Arterial O2 Gradient 232.1 mmHg; Carboxyhemoglobin 0.2 % THb (0-2.0); Device VENTILATOR; Fractional Inspired Oxygen 50 %; HCO3 ABG 31.9 mEq/l (22.0-26.0); Methemoglobin ABG 0.3 %THb (0-1.5); Modified Allen's Test Unable to perform; Oxygen Content ABG 14.1 %vol (16.0-22.0); Oxygen Saturation ABG 97.3 % (95.0-100.0); Oxyhemoglobin 95.4 % THb (90.0-100.0); PCO2 ABG 37.2 mmHg (35.0-45.0); PO2 ABG 82.6 mmHg (80.0-100.0); PO2 FiO2 Ratio Arterial Blood 1.65 %; Reduced Hemoglobin 4.1 %THb (0-5.0); Site Drawn RIGHT RADIAL; Total Hemoglobin 10.4 g/dL (12.0-18.0); pH ABG 7.551 (7.350-7.450)
[2022-10-23 06:23] LABS: Arterial Blood Gas PEEP 5 cmH2O; Arterial Blood Gas Tidal Volume 400 ml; Arterial Blood Gas Vent Mode CMV; Arterial Blood Gas Ventilator rate 20 /MIN
--- NOTE | 2022-10-23 07:46 | PM.IMPN ---
Progress Note: A&P Assessment and Plan (1) Encephalopathy: Code(s): G93.40 - Encephalopathy, unspecified Status: Acute (2) Respiratory failure: Code(s): J96.90 - Respiratory failure, unspecified, unspecified whether with hypoxia or hypercapnia Status: Acute Plan (1) Acute respiratory failure with hypoxia: ?Code(s): J96.01 - Acute respiratory failure with hypoxia ?Status:?Acute ?Assessment and Plan: Acute respiratory failure likely related to CHF exacerbation and/or COPD exacerbation, AFib RVR -patient's initial gas hypercapnic respiratory acidosis -currently on CMV mode of ventilation, peep of 5 and 50% FiO2, wean FiO2 to maintain O2 sats greater than 92% -chest x-ray on admission showed?Cardiomegaly with pulmonary edema.: A small right pleural effusion.? Endotracheal tube at the shannan. Recommend retraction 4 cm -start bronchodilators, pulmicort -sedated with propofol, will add fentanyl for analgesia, maintain RASS of 0 to -1, daily SAT and SBT -patient started on cefepime and vancomycin (10/22) as she was recently admitted to the hospital at [facility] for pneumonia she has been in a rehab 10/12/2022 -10/22 CT chest noncontrast There is no evidence of any significant mediastinal, hilar or axillary lymphadenopathy. The mediastinal soft tissues appear normal. Cardiomegaly noted. No pericardial effusion. Minimal right pleural effusion present. Large calcified right basilar granuloma present. There is mild left basilar scarring. Images through the upper abdomen reveal calcified splenic granulomas. Impression: Minimal right pleural effusion. Cardiomegaly. (2) Afib: ?Code(s): I48.91 - Unspecified atrial fibrillation ?Status:?Acute ?Assessment and Plan: Patient has a history of AFib, on apixaban at the rehab center -will continue apixaban -will add per tube metoprolol scheduled and metoprolol IV p.r.n.. (3) Encephalopathy: ?Code(s): G93.40 - Encephalopathy, unspecified ?Status:?Acute ?Assessment and Plan: Encephalopathy likely related to hypercapnia, hypoxia -currently on mechanical ventilation, adequate oxygenation on ABGs (4) Type 2 diabetes mellitus: ?Code(s): E11.9 - Type 2 diabetes mellitus without complications ?Status:?Acute ?Assessment and Plan: Will start Accu-Cheks and sliding scale insulin -check hemoglobin A1c (5) CHF (congestive heart failure): ?Code(s): I50.9 - Heart failure, unspecified ?Status:?Acute ?Assessment and Plan: Patient presented with acute respiratory failure, chest x-ray showed pulmonary edema -patient given Lasix with good response -will check echocardiogram (6) GERD (gastroesophageal reflux disease): ?Code(s): K21.9 - Gastro-esophageal reflux disease without esophagitis ?Status:?Acute ?Assessment and Plan: Started on Protonix (7) Hyperlipidemia: ?Code(s): E78.5 - Hyperlipidemia, unspecified ?Status:?Acute ?Assessment and Plan: Continue atorvastatin (8) Hypertension: ?Code(s): I10 - Essential (primary) hypertension ?Status:?Acute ?Assessment and Plan: Patient history of essential hypertension, patient on metoprolol -monitor blood pressures (9) COPD (chronic obstructive pulmonary disease): ?Code(s): J44.9 - Chronic obstructive pulmonary disease, unspecified ?Status:?Acute ?Assessment and Plan: History of COPD currently on mechanical ventilation -continue bronchodilators (10) Anxiety: ?Code(s): F41.9 - Anxiety disorder, unspecified ?Status:?Acute ?Assessment and Plan: Patient on escitalopram at home, will restart once she is off propofol due to QT prolongation issues Subjective Date/time seen: 10/23/22 07:46 Objective Data Vital Signs Vital Signs: Vital Signs - 24 hr 10/22/22 09:50 10/22/22 09:59 10/22/22 10:10 Temperature Pulse Rate 129 H 111 H 81 Respiratory Rate 3 L Blood Pressure 126/82
[2022-10-23] MEDS: dexmedeTOMIDine 400 MCG/100 ML 400 MCG/100 ML BAG IV CONT (07:48)
[2022-10-23] MEDS: BUDESONIDE RESPULE NEB 0.5 MG/2 ML AMP INHALATION ×2 (07:50→20:02)
[2022-10-23] MEDS: POTASSIUM CHLORIDE 20 MEQ PACKET (FOR LIQUID) 40 MEQ FEED TUBE (07:51)
--- NOTE | 2022-10-23 07:51 | PM.IMPN ---
Progress Note: A&P Assessment and Plan (1) Acute respiratory failure with hypoxia: Code(s): J96.01 - Acute respiratory failure with hypoxia Status: Acute Assessment and Plan: Multifactorial, likely secondary to CHF exacerbation as well as COPD exacerbation and atrial fibrillation Appreciate television camera operator management of the ventilator Vancomycin and cefepime initiated 10/22 (2) Chronic a-fib: Code(s): I48.20 - Chronic atrial fibrillation, unspecified Status: Acute Assessment and Plan: Continue Eliquis, currently rate controlled with metoprolol (3) Encephalopathy: Code(s): G93.40 - Encephalopathy, unspecified Status: Acute Assessment and Plan: Suspect secondary to hypercapnic respiratory failure, continue intubation, ventilation management (4) Type 2 diabetes mellitus: Code(s): E11.9 - Type 2 diabetes mellitus without complications Status: Acute Assessment and Plan: Accu-Cheks, sliding scale insulin, check A1c (5) CHF (congestive heart failure): Code(s): I50.9 - Heart failure, unspecified Status: Acute Assessment and Plan: Echo 10/22 showed EF 65-70% with mild pulmonary hypertension and [id number] valvular disease, no mention of diastolic function, cont lasix (6) Hyperlipidemia: Code(s): E78.5 - Hyperlipidemia, unspecified Status: Acute Assessment and Plan: Cont statin (7) Hypertension: Code(s): I10 - Essential (primary) hypertension Status: Acute Assessment and Plan: Blood pressures reviewed 10/23 (8) COPD (chronic obstructive pulmonary disease): Code(s): J44.9 - Chronic obstructive pulmonary disease, unspecified Status: Acute Assessment and Plan: Cont nebs (9) Anxiety: Code(s): F41.9 - Anxiety disorder, unspecified Status: Acute Assessment and Plan: Cont lexapro when able Plan DVT prophylaxis with eliquis GI prophylaxis with PPI Code status full code Tube feeds per television camera operator Subjective Date/time seen: 10/23/22 07:51 Interval history: 76 year old female with past medical history of CHF, COPD, chronic kidney disease, diabetes, anxiety, endometriosis, knee pain, benign breast mass x2, DVT, back pain, left hip pain, hyperlipidemia, essential hypertension urinary incontinence, recently admitted at [facility] with respiratory failure secondary to pneumonia, CHF requiring intubation, antibiotics from 09/29/2022 to 10/11/2022.?Patient presented to the ED at [facility] on 10/22/2022 after [facility], currently intubated in the ICU with multifactorial respiratory failure. No overnight events, fever was 100.5 last evening. Review of Systems Review of Systems: ROS unobtainable: Yes unobtainable due to endotracheal tube Exam Narrative: General: Int/sed HEENT: Atraumatic, normocephalic, mucous membranes moist CV: irregularly irregular, S1, S2 Lungs: Coarse BS, unlabored breathing on vent Abdomen: Soft, nontender, nondistended Extremities: Normal to inspection, + edema Psych: Unable to assess Objective Data Vital Signs Vital Signs: Vital Signs - 24 hr 10/22/22 09:50 10/22/22 09:59 10/22/22 10:10 Temperature Pulse Rate 129 H 111 H 81 Respiratory Rate 3 L Blood Pressure 126/82 Pulse Oximetry 100 100 Oxygen Delivery Bag Valve Mask Mechanical Ventilation Fraction of Inspired Oxygen 100 10/22/22 10:41 10/22/22 10:55 10/22/22 10:59 Temperature Pulse Rate 118 H 136 H Respiratory Rate 16 25 H 16 Blood Pressure Pulse Oximetry Oxygen Delivery Fraction of Inspired Oxygen 10/22/22 10:59 10/22/22 11:55 10/22/22 09:56 Temperature Pulse Rate 131 H 102 H 104 H Respiratory Rate 16 32 H Blood Pressure 126/98 H 126/82 Pulse Oximetry 100 100 100 Oxygen Delivery
[2022-10-23] MEDS: MINERAL OIL/WHITE PETROLATUM OINTMENT 1 APPLIC EACH EYE ×2 (07:52→20:26)
[2022-10-23] MEDS: PANTOPRAZOLE SODIUM IV 40 MG VIAL IV PUSH (07:52)
[2022-10-23] MEDS: METOPROLOL TARTRATE 25 MG TABLET PO (07:52)
[2022-10-23] MEDS: POTASSIUM/PHOSPHORUS/SODIUM 1.5 GM PACKET 1 PACKET PO (07:55)
[2022-10-23] MEDS: CEFEPIME 1 GM/NS 50 ML 1 GM/50 ML BAG IVPB ×2 (07:56→20:17)
--- NOTE | 2022-10-23 08:29 | WPDINTPN ---
Progress Note: A&P Assessment and Plan (1) GI bleed: Code(s): K92.2 - Gastrointestinal hemorrhage, unspecified Status: Acute Assessment and Plan: Patient with large amount of coffee-ground drainage from OG tube -will place patient on Protonix infusion -GI will be consulted -hemoglobin dropped from 10.0 on admission to 9.1 on 10/23 -will monitor H&H Q 6 hours -hold apixaban (2) Acute respiratory failure with hypoxia: Code(s): J96.01 - Acute respiratory failure with hypoxia Status: Acute Assessment and Plan: Acute respiratory failure likely related to CHF exacerbation and/or COPD exacerbation, AFib RVR -10/22/2022: Intubated in the ER upon arrival -currently on CMV mode of ventilation, peep of 5 and 50% FiO2, wean FiO2 to maintain O2 sats greater than 92% -chest x-ray this morning: Small right pleural effusion with probable minimal bibasilar pulmonary edema -continue bronchodilators and pulmicort -sedated with propofol and fentanyl , maintain RASS of 0 to -1, daily SAT and SBT -have asked the bedside RN to wean off sedation, will place patient on SBT and evaluate for extubation -continue cefepime and vancomycin (10/22) as she was recently admitted to the hospital at [facility] for pneumonia she has been in a rehab 10/12/2022 -10/22 CT chest noncontrast There is no evidence of any significant mediastinal, hilar or axillary lymphadenopathy. The mediastinal soft tissues appear normal. Cardiomegaly noted. No pericardial effusion. Minimal right pleural effusion present. Large calcified right basilar granuloma present. There is mild left basilar scarring. Images through the upper abdomen reveal calcified splenic granulomas. Impression: Minimal right pleural effusion. Cardiomegaly. (3) Afib: Code(s): I48.91 - Unspecified atrial fibrillation Status: Acute Assessment and Plan: Patient has a history of AFib, on apixaban at the rehab center -hold apixaban as patient is having a lot of coffee-ground drainage through her OG tube -will hold metoprolol due to new line blood pressures (4) Encephalopathy: Code(s): G93.40 - Encephalopathy, unspecified Status: Acute Assessment and Plan: RESOLVED Encephalopathy likely related to hypercapnia, hypoxia -currently on mechanical ventilation, adequate oxygenation on ABGs -off sedation patient did open her eyes and follows simple commands in all extremities (5) Type 2 diabetes mellitus: Code(s): E11.9 - Type 2 diabetes mellitus without complications Status: Acute Assessment and Plan: Accu-Cheks and sliding scale insulin (6) CHF (congestive heart failure): Code(s): I50.9 - Heart failure, unspecified Status: Acute Assessment and Plan: Patient presented with acute respiratory failure, chest x-ray showed pulmonary edema -patient given Lasix with good response -echocardiogram report pending (7) GERD (gastroesophageal reflux disease): Code(s): K21.9 - Gastro-esophageal reflux disease without esophagitis Status: Acute Assessment and Plan: Continue tonics (8) Hyperlipidemia: Code(s): E78.5 - Hyperlipidemia, unspecified Status: Acute Assessment and Plan: Continue atorvastatin (9) Hypertension: Code(s): I10 - Essential (primary) hypertension Status: Acute Assessment and Plan: Patient history of essential hypertension, hold metoprolol due to borderline blood pressure which could be related to sedation medications -monitor blood pressures (10) COPD (chronic obstructive pulmonary disease): Code(s): J44.9 - Chronic obstructive pulmonary disease, unspecified Status: Acute Assessment and Plan: History of COPD currently on mechanical ventilation -continue bronchodilators (11) Anxiety: Code(s): F41.9 - Anxiety disorder, unspecified Status: Acute Assessment and Plan: Patient on escitalopram at
[2022-10-23] MEDS: PANTOPRAZOLE SODIUM IV 40 MG VIAL 80 MG IV PUSH (08:43)
[2022-10-23] MEDS: PANTOPRAZOLE SODIUM IV 80 MG in SODIUM CHLORIDE 0.9% IV 500 ML 50 MG IV CONT ×2 (08:45→19:00)
[2022-10-23] MEDS: LIDOCAINE HCL 1% PF INJ 5 ML VIAL INFILTRATE (11:00)
--- NOTE | 2022-10-23 11:23 | PCFNICU ---
ICU Rounding Note: Pt current nutrition is NPO. Last recorded weight is 99.3 kg. Bowel Motility:+BM reported 10/23 Labs Reviewed:Glu 166, BUN 37, GFR 40, K 3.3,Cr 1.3,Hct 29.7,Hgb 9.1 Meds Noted:Precedex, Vancomycin, Protonix Skin: WNL Additional Notes:Patient NPO. No nutrition today. GI consult-coffee ground emesis. Plans for PICC today. Following daily in ICU rounds.
[2022-10-23 12:07] LABS: Glucose Point of Care 233 mg/dl (65-105)
[2022-10-23] MEDS: INSULIN ASPART (*BKC) 100 UNITS/ML SUB-Q ×2 (12:42→18:56)
[2022-10-23 12:57] LABS: Hematocrit 27.3 % (37.0-47.0); Hemoglobin 8.5 g/dL (12.0-15.0)
[2022-10-23 13:12] LABS: Hemoglobin A1C 6.7 % (<5.7)
[2022-10-23] MEDS: CENTRAL LINE FLUSH 10 ML IV PUSH ×2 (13:40→20:04)
[2022-10-23 18:37] LABS: Hematocrit 28.2 % (37.0-47.0); Hemoglobin 8.7 g/dL (12.0-15.0)
[2022-10-23 19:28] LABS: Glucose Point of Care 235 mg/dl (65-105)
[2022-10-23] MEDS: SENNA/DOCUSATE SODIUM TABLET 1 TAB PO (20:26)
[2022-10-23] MEDS: ATORVASTATIN 40 MG TABLET PO (20:26)
[2022-10-23] MEDS: hetaSTARCH 6%/NACL 500 ML 250 ML IV CONT (21:17)
[2022-10-23 23:28] LABS: Glucose Point of Care 153 mg/dl (65-105)
[2022-10-23] MEDS: dexmedeTOMIDine 400 MCG/100 ML 400 MCG/100 ML BAG 9.93 MCG IV CONT (23:56)
[2022-10-24] VITALS (38 sets, daily range): BP systolic 98–149; BP diastolic 43–66; PULSE 45–73; RESP 8–33; TEMP 36.2–38.1; O2SAT 95–100; BMI 34.2
[2022-10-24 00:24] LABS: Hematocrit 26.3 % (37.0-47.0); Hemoglobin 8.2 g/dL (12.0-15.0)
[2022-10-24] MEDS: LEVALBUTEROL NEB 1.25 MG/3 ML 0.63 MG INHALATION ×4 (02:45→20:35)
[2022-10-24] MEDS: IPRATROPIUM BR 0.02% INH SOLN 0.5 MG/2.5 ML VIAL INHALATION ×4 (02:45→20:34)
[2022-10-24 04:33] LABS: Alveolar/Arterial O2 Gradient 209.3 mmHg; Base Excess ABG 3.6 mEq/l (+/-2.0); Carboxyhemoglobin 0.2 % THb (0-2.0); Fractional Inspired Oxygen 50 %; HCO3 ABG 25.8 mEq/l (22.0-26.0); Methemoglobin ABG 0.6 %THb (0-1.5); Oxygen Content ABG 12.5 %vol (16.0-22.0); Oxygen Saturation ABG 98.7 % (95.0-100.0); Oxyhemoglobin 96.9 % THb (90.0-100.0); PCO2 ABG 29.9 mmHg (35.0-45.0); PO2 ABG 113.6 mmHg (80.0-100.0); PO2 FiO2 Ratio Arterial Blood 2.27 %; Reduced Hemoglobin 2.3 %THb (0-5.0)
[2022-10-24 04:37] LABS: Device VENTILATOR; Modified Allen's Test Pass; Site Drawn RIGHT RADIAL; pH ABG 7.553 (7.350-7.450)
[2022-10-24 04:38] LABS: Arterial Blood Gas PEEP 5 cmH2O; Arterial Blood Gas Vent Mode ASV
[2022-10-24 05:16] LABS: Glucose Point of Care 189 mg/dl (65-105)
[2022-10-24] MEDS: CENTRAL LINE FLUSH 10 ML IV PUSH ×3 (05:59→21:19)
[2022-10-24] MEDS: PANTOPRAZOLE SODIUM IV 80 MG in SODIUM CHLORIDE 0.9% IV 500 ML 50 MG IV CONT (06:09)
[2022-10-24 06:22] LABS: Basophils Percent Auto 0.4 % (0.2-1.2); Eosinophils Absolute Auto 0.4 K/mm3 (0-0.3); Hematocrit 26.8 % (37.0-47.0); Hemoglobin 8.2 g/dL (12.0-15.0); Immature Granulocyte Absolute 0.03 K/mm3 (0.00-0.031); Immature Granulocyte Percent A 0.6 % (0-0.5); Lymphocytes Absolute Auto 0.52 K/mm3 (0.9-3.2); Lymphocytes Percent Auto 9.7 % (18.3-44.2); Mean Corpuscular HGB Conc 30.6 g/dl (32-36); Mean Corpuscular Hemoglobin 30.4 pg (26-34); Mean Corpuscular Volume 99.3 fl (80-100); Mean Platelet Volume 11.5 fl (7.4-10.4); Monocytes Absolute Auto 0.5 K/mm3 (0.1-0.6); Monocytes Percent Auto 8.6 % (2.6-8.5); Neutrophils Absolute Auto 3.9 K/mm3 (1.3-6.7); Neutrophils Percent Auto 72.7 % (45.5-73.1); Platelet Count Result 112 k/mm3 (150-375); Red Cell Distribution Width 15.6 % (11.5-14.5); White Blood Count 5.4 K/mm3 (4.5-10.0)
[2022-10-24 06:46] LABS: Alanine Aminotransferase 15 U/L (6-35); Albumin Level 2.9 g/dL (3.5-5.1); Alkaline Phosphatase 66 U/L (38-126); Anion Gap 7 mmol/L (8-16); Aspartate Amino Transferase 15 U/L (14-36); Bilirubin,Total 0.8 mg/dL (0.2-1.3); Blood Urea Nitrogen 30 mg/dL (7-17); Calcium 7.9 mg/dL (8.4-10.2); Carbon Dioxide 30 mmol/L (22-30); Chloride 99 mmol/L (98-107); Estimated CRCL calculation 42 ml/min; Estimated Glomerular Filt Rate 43; Glucose 189 mg/dL (65-110); Phosphorus 2.8 mg/dL (2.5-4.5); Potassium 3.3 mmol/L (3.4-5.0); Sodium 136 mmol/L (137-145); Triglycerides 94 mg/dL (<150)
[2022-10-24] MEDS: BUDESONIDE RESPULE NEB 0.5 MG/2 ML AMP INHALATION ×2 (07:30→20:34)
[2022-10-24] MEDS: FUROSEMIDE INJ 40 MG/4 ML VIAL IV PUSH (08:06)
[2022-10-24] MEDS: POTASSIUM CHLORIDE 20 MEQ PACKET (FOR LIQUID) 40 MEQ FEED TUBE (08:07)
[2022-10-24] MEDS: MINERAL OIL/WHITE PETROLATUM OINTMENT 1 APPLIC EACH EYE (08:09)
[2022-10-24] MEDS: PANTOPRAZOLE SODIUM IV 40 MG VIAL IV PUSH ×2 (08:10→21:19)
[2022-10-24 08:12] LABS: INR 1.6
[2022-10-24 08:13] LABS: Partial Thromboplastin Time 35.6 SECONDS (22.3-36.8)
[2022-10-24] MEDS: CEFEPIME 1 GM/NS 50 ML 1 GM/50 ML BAG IVPB ×2 (08:19→21:25)
--- NOTE | 2022-10-24 09:44 | PM.IMPN ---
Progress Note: A&P Assessment and Plan (1) Acute respiratory failure with hypoxia: Code(s): J96.01 - Acute respiratory failure with hypoxia Status: Acute Assessment and Plan: Multifactorial, likely secondary to CHF exacerbation as well as COPD exacerbation and atrial fibrillation Appreciate credit support counselor management of the ventilator Vancomycin and cefepime initiated 10/22 (2) Chronic a-fib: Code(s): I48.20 - Chronic atrial fibrillation, unspecified Status: Acute Assessment and Plan: Continue Eliquis, currently rate controlled with metoprolol (3) Encephalopathy: Code(s): G93.40 - Encephalopathy, unspecified Status: Acute Assessment and Plan: Suspect secondary to hypercapnic respiratory failure, continue intubation, ventilation management (4) Type 2 diabetes mellitus: Code(s): E11.9 - Type 2 diabetes mellitus without complications Status: Acute Assessment and Plan: Accu-Cheks, sliding scale insulin, check A1c (5) CHF (congestive heart failure): Code(s): I50.9 - Heart failure, unspecified Status: Acute Assessment and Plan: Echo 10/22 showed EF 65-70% with mild pulmonary hypertension and wdla-tz-bcolzhob valvular disease, no mention of diastolic function, cont lasix (6) Hyperlipidemia: Code(s): E78.5 - Hyperlipidemia, unspecified Status: Acute Assessment and Plan: Cont statin (7) Hypertension: Code(s): I10 - Essential (primary) hypertension Status: Acute Assessment and Plan: Blood pressures reviewed 10/23 (8) COPD (chronic obstructive pulmonary disease): Code(s): J44.9 - Chronic obstructive pulmonary disease, unspecified Status: Acute Assessment and Plan: Cont nebs (9) Anxiety: Code(s): F41.9 - Anxiety disorder, unspecified Status: Acute Assessment and Plan: Cont lexapro when able Plan DVT prophylaxis with eliquis GI prophylaxis with PPI Code status full code Tube feeds per credit support counselor Subjective Date/time seen: 10/24/22 09:44 Interval history: 76 year old female with past medical history of CHF, COPD, chronic kidney disease, diabetes, anxiety, endometriosis, knee pain, benign breast mass x2, DVT, back pain, left hip pain, hyperlipidemia, essential hypertension urinary incontinence, recently admitted at [facility] with respiratory failure secondary to pneumonia, CHF requiring intubation, antibiotics from 09/29/2022 to 10/11/2022.?Patient presented to the ED at [facility] on 10/22/2022 after she was found with altered mental status at [facility], currently intubated in the ICU with multifactorial respiratory failure. No overnight events, fever was 100.5 last evening. Review of Systems Review of Systems: ROS unobtainable: Yes unobtainable due to endotracheal tube Exam Narrative: General: Int/sed HEENT: Atraumatic, normocephalic, mucous membranes moist CV: irregularly irregular, S1, S2 Lungs: Coarse BS, unlabored breathing on vent Abdomen: Soft, nontender, nondistended Extremities: Normal to inspection, + edema Psych: Unable to assess Objective Data Vital Signs Vital Signs: Vital Signs - 24 hr 10/23/22 09:50 10/23/22 10:00 10/23/22 10:00 Temperature Pulse Rate 61 58 L 57 L Respiratory Rate 14 13 Blood Pressure Pulse Oximetry Oxygen Delivery Fraction of Inspired Oxygen 10/23/22 10:00 10/23/22 12:00 10/23/22 12:44 Temperature 97.9 F Pulse Rate 57 L 53 L 52 L Respiratory Rate 13 13 13 Blood Pressure 128/53 L 117/50 L Pulse Oximetry 95 95 Oxygen Delivery Fraction of Inspired Oxygen 10/23/22 10:40 10/23/22 13:30 10/23/22 13:30 Temperature Pulse Rate 55 L 52 L 52 L Respiratory Rate 14 Blood Pressure Pulse Oximetry 94 94 Oxygen Delivery Mechanical Ventilation Mechanical Ventilation Fr
[2022-10-24] MEDS: dexmedeTOMIDine 400 MCG/100 ML 400 MCG/100 ML BAG 7.45 MCG IV CONT (10:07)
--- NOTE | 2022-10-24 11:34 | WPDINTPN ---
Progress Note: A&P Assessment and Plan (1) GI bleed: Code(s): K92.2 - Gastrointestinal hemorrhage, unspecified Status: Acute Assessment and Plan: Patient with large amount of coffee-ground drainage from OG tube -GI will be consulted -hemoglobin dropped from 10.0 on admission to 9.1 on 10/23 -will monitor H&H Q 6 hours -hold apixaban -bilious drainage in the NG tube -discontinue Protonix infusion, place patient on Protonix IV q.12 hours -hemoglobin dropped this morning to 8.2 from 10.0 on admission (2) Acute respiratory failure with hypoxia: Code(s): J96.01 - Acute respiratory failure with hypoxia Status: Acute Assessment and Plan: Acute respiratory failure likely related to CHF exacerbation and/or COPD exacerbation, AFib RVR -10/22/2022: Intubated in the ER upon arrival -currently on CMV mode of ventilation, peep of 5 and 50% FiO2, wean FiO2 to maintain O2 sats greater than 92% -chest x-ray this morning: Mild to moderate pulmonary edema pattern with small to moderate right pleural effusion -continue bronchodilators and pulmicort -OFF propofol and fentanyl, -remains on Precedex infusion, patient is awake, alert -10/24 Lasix 40 mg IV x1 was given this morning -will place patient on pressure support ventilation once she responds to Lasix -continue cefepime and vancomycin (10/22) as she was recently admitted to the hospital at [facility] for pneumonia she has been in a rehab 10/12/2022 -10/22 CT chest noncontrast There is no evidence of any significant mediastinal, hilar or axillary lymphadenopathy. The mediastinal soft tissues appear normal. Cardiomegaly noted. No pericardial effusion. Minimal right pleural effusion present. Large calcified right basilar granuloma present. There is mild left basilar scarring. Images through the upper abdomen reveal calcified splenic granulomas. Impression: Minimal right pleural effusion. Cardiomegaly. (3) Afib: Code(s): I48.91 - Unspecified atrial fibrillation Status: Acute Assessment and Plan: Currently in sinus bradycardia secondary to Precedex infusion Patient has a history of AFib, on apixaban at the rehab center -hold apixaban due to coffee-ground drainage through her OG tube on admission, drop in hemoglobin -will hold metoprolol due to new line blood pressures (4) Encephalopathy: Code(s): G93.40 - Encephalopathy, unspecified Status: Acute Assessment and Plan: RESOLVED Encephalopathy likely related to hypercapnia, hypoxia -currently on mechanical ventilation, adequate oxygenation on ABGs -off sedation patient did open her eyes and follows simple commands in all extremities (5) Type 2 diabetes mellitus: Code(s): E11.9 - Type 2 diabetes mellitus without complications Status: Acute Assessment and Plan: Accu-Cheks and sliding scale insulin (6) CHF (congestive heart failure): Code(s): I50.9 - Heart failure, unspecified Status: Acute Assessment and Plan: Patient presented with acute respiratory failure, chest x-ray showed pulmonary edema 10/22:echocardiogram -EF 65-70%, moderately increased LV wall thickness, LV diastolic function indeterminate. Basal anteroseptal and mid anteroseptal wall hypokinetic, left atrial chamber severely enlarged, moderate aortic valve sclerosis, mild to moderate mitral valve regurgitation, mild pulmonary hypertension with RVSP of 38 mmHg P.r.n. Lasix (7) GERD (gastroesophageal reflux disease): Code(s): K21.9 - Gastro-esophageal reflux disease without esophagitis Status: Acute Assessment and Plan: Continue Protonix IV q.12 hours (8) Hyperlipidemia: Code(s): E78.5 - Hyperlipidemia, unspecified Status: Acute Assessment and Plan: Continue atorvastatin (9) Hypertension: Code(s): I10 - Essential (primary) hypertension Status: Acute Assessment and Plan: Patient history of essential hyp
[2022-10-24] MEDS: INSULIN ASPART (*BKC) 100 UNITS/ML SUB-Q (12:55)
[2022-10-24 13:13] LABS: Glucose Point of Care 215 mg/dl (65-105)
[2022-10-24 14:04] LABS: Vancomycin Trough 20.2 ug/mL (10.0-20.0)
--- NOTE | 2022-10-24 18:02 | ECG_ITS ---
Measurements Intervals [place] Rate: 64 P: 96 [place]: 132 QRS: 11 QRSD: 101 T: 87 QT: 428 QTc: 444 Interpretive Statements SINUS RHYTHM RSR' IN V1 OR V2, CONSIDER RIGHT VENTRICULAR HYPERTROPHY OR RIGHT VCD BORDERLINE ST-T WAVE ABNORMALITY- HIGH LATERAL LEADS BASELINE ARTIFACT- I, II, III, AVR, AVL, AVF BORDERLINE ECG COMPARED TO ECG 10/22/2022 09:52:09 SINUS RHYTHM NOW PRESENT Electronically Signed On 10-25-2022 8:25:56 CDT by Abdullahi Mcmahon D.O.
[2022-10-24 18:33] LABS: Glucose Point of Care 128 mg/dl (65-105)
[2022-10-24] MEDS: VANCOMYCIN 1,250 MG/NS 250 ML 1,250 MG/250 ML BAG 166.67 MG IVPB (19:36)
[2022-10-24 19:37] LABS: Troponin I 0.048 ng/mL (0.000-0.034)
[2022-10-24] MEDS: dexmedeTOMIDine 400 MCG/100 ML 400 MCG/100 ML BAG IV CONT ×2 (20:31→20:40)
[2022-10-24] MEDS: ATORVASTATIN 40 MG TABLET PO (21:19)
[2022-10-24] MEDS: SENNA/DOCUSATE SODIUM TABLET 1 TAB PO (21:19)
[2022-10-24] MEDS: HYDROcodone/acetaminophen (*CRX) 5-325 MG TABLET 1 TAB PO (21:24)
[2022-10-25] VITALS (42 sets, daily range): BP systolic 110–137; BP diastolic 38–55; PULSE 60–87; RESP 15–32; TEMP 37.2–37.7; O2SAT 93–100
[2022-10-25 00:14] LABS: Glucose Point of Care 154 mg/dl (65-105)
[2022-10-25] MEDS: PROPOFOL IV EMULSION 100 ML 2.98 MG IV CONT (00:41)
[2022-10-25] MEDS: LEVALBUTEROL NEB 1.25 MG/3 ML 0.63 MG INHALATION ×4 (02:29→20:39)
[2022-10-25] MEDS: IPRATROPIUM BR 0.02% INH SOLN 0.5 MG/2.5 ML VIAL INHALATION ×4 (02:29→20:39)
--- NOTE | 2022-10-25 03:51 | PC.NURSE ---
0330: RN to patient's bedside to fix pulse ox. RN found patient jerking her head to the left--opposite from where the ET tube/ventilator was. RN told patient to stop and asked her what she was doing. Patient used her pen and clipboard of paper to write tube out . After further inquiry RN discovered that the patient was trying to intentionally self-extubate. RN explained to the patient that she had a right to make decisions about her life but it would not be in her best interest to self extubate tonight. Patient agreed to talk to her family and the doctor in the morning.
[2022-10-25 05:42] LABS: Alveolar/Arterial O2 Gradient 150.7 mmHg; Base Excess ABG 6.1 mEq/l (+/-2.0); Carboxyhemoglobin 0.3 % THb (0-2.0); Fractional Inspired Oxygen 40 %; HCO3 ABG 29.5 mEq/l (22.0-26.0); Methemoglobin ABG 0.3 %THb (0-1.5); Oxygen Content ABG 18.7 %vol (16.0-22.0); Oxygen Saturation ABG 97.5 % (95.0-100.0); Oxyhemoglobin 95.9 % THb (90.0-100.0); PCO2 ABG 38.4 mmHg (35.0-45.0); PO2 ABG 90.3 mmHg (80.0-100.0); PO2 FiO2 Ratio Arterial Blood 2.26 %; Reduced Hemoglobin 3.5 %THb (0-5.0); Total Hemoglobin 13.8 g/dL (12.0-18.0)
[2022-10-25 05:45] LABS: Basophils Percent Auto 0.6 % (0.2-1.2); Eosinophils Absolute Auto 0.3 K/mm3 (0-0.3); Eosinophils Percent Auto 5.8 % (0-4.4); Hematocrit 26.9 % (37.0-47.0); Hemoglobin 8.5 g/dL (12.0-15.0); Immature Granulocyte Absolute 0.02 K/mm3 (0.00-0.031); Immature Granulocyte Percent A 0.4 % (0-0.5); Lymphocytes Absolute Auto 0.43 K/mm3 (0.9-3.2); Lymphocytes Percent Auto 8.3 % (18.3-44.2); Mean Corpuscular HGB Conc 31.6 g/dl (32-36); Mean Corpuscular Hemoglobin 31.4 pg (26-34); Mean Corpuscular Volume 99.3 fl (80-100); Mean Platelet Volume 11.1 fl (7.4-10.4); Monocytes Absolute Auto 0.4 K/mm3 (0.1-0.6); Monocytes Percent Auto 8.1 % (2.6-8.5); Neutrophils Percent Auto 76.8 % (45.5-73.1); Platelet Count Result 150 k/mm3 (150-375); Red Blood Count 2.71 M/mm3 (4.2-5.4); Red Cell Distribution Width 15.7 % (11.5-14.5); White Blood Count 5.2 K/mm3 (4.5-10.0)
[2022-10-25 05:47] LABS: Device VENTILATOR; Site Drawn LEFT BRACHIAL; pH ABG 7.503 (7.350-7.450)
[2022-10-25 05:48] LABS: Arterial Blood Gas PEEP 5 cmH2O; Arterial Blood Gas Tidal Volume 400 ml; Arterial Blood Gas Vent Mode CMV; Arterial Blood Gas Ventilator rate 20 /MIN
[2022-10-25 05:49] LABS: Triglycerides 120 mg/dL (<150)
[2022-10-25 05:50] LABS: Alanine Aminotransferase 16 U/L (6-35); Albumin Level 3.2 g/dL (3.5-5.1); Alkaline Phosphatase 74 U/L (38-126); Anion Gap 3 mmol/L (8-16); Aspartate Amino Transferase 17 U/L (14-36); Bilirubin,Total 0.8 mg/dL (0.2-1.3); Blood Urea Nitrogen 27 mg/dL (7-17); Calcium 7.9 mg/dL (8.4-10.2); Carbon Dioxide 34 mmol/L (22-30); Chloride 99 mmol/L (98-107); Estimated CRCL calculation 39 ml/min; Estimated Glomerular Filt Rate 40; Glucose 194 mg/dL (65-110); Magnesium 1.8 mg/dL (1.6-2.3); Phosphorus 2.8 mg/dL (2.5-4.5); Potassium 3.7 mmol/L (3.4-5.0); Sodium 136 mmol/L (137-145)
[2022-10-25] MEDS: CENTRAL LINE FLUSH 10 ML IV PUSH ×3 (06:46→19:58)
--- NOTE | 2022-10-25 07:53 | PM.IMPN ---
Progress Note: A&P Assessment and Plan (1) Acute respiratory failure with hypoxia: Code(s): J96.01 - Acute respiratory failure with hypoxia Status: Acute Assessment and Plan: Multifactorial, likely secondary to CHF exacerbation as well as COPD exacerbation and atrial fibrillation Appreciate assistant professor of geography management of the ventilator, multiple failed weaning attempts Vancomycin and cefepime initiated 10/22 (2) Chronic a-fib: Code(s): I48.20 - Chronic atrial fibrillation, unspecified Status: Acute Assessment and Plan: Continue Eliquis, currently rate controlled with metoprolol (3) Encephalopathy: Code(s): G93.40 - Encephalopathy, unspecified Status: Acute Assessment and Plan: Suspect secondary to hypercapnic respiratory failure, continue intubation, ventilation management Appears resolved (4) Type 2 diabetes mellitus: Code(s): E11.9 - Type 2 diabetes mellitus without complications Status: Acute Assessment and Plan: Accu-Cheks, sliding scale insulin, check A1c (5) CHF (congestive heart failure): Code(s): I50.9 - Heart failure, unspecified Status: Acute Assessment and Plan: Echo 10/22 showed EF 65-70% with mild pulmonary hypertension and mamu-by-kubvhhbo valvular disease, no mention of diastolic function, cont lasix (6) Hyperlipidemia: Code(s): E78.5 - Hyperlipidemia, unspecified Status: Acute Assessment and Plan: Cont statin (7) Hypertension: Code(s): I10 - Essential (primary) hypertension Status: Acute Assessment and Plan: Blood pressures reviewed 10/25 (8) COPD (chronic obstructive pulmonary disease): Code(s): J44.9 - Chronic obstructive pulmonary disease, unspecified Status: Acute Assessment and Plan: Cont nebs (9) Anxiety: Code(s): F41.9 - Anxiety disorder, unspecified Status: Acute Assessment and Plan: Cont lexapro when able (10) GI bleed: Code(s): K92.2 - Gastrointestinal hemorrhage, unspecified Status: Acute Assessment and Plan: Patient with large amount of coffee-ground drainage from OG tube GI will be consulted on Thursday hemoglobin dropped from 10.0 on admission to 9.1 on 10/23 will monitor H&H Q 6 hours hold apixaban bilious drainage in the NG tube Protonix IV q.12 hours 10/25: hgb stable at 8.5 today Plan DVT prophylaxis with SCDs, eliquis on hold GI prophylaxis with PPI Code status full code Tube feeds per assistant professor of geography Subjective Date/time seen: 10/25/22 07:53 Interval history: 76 year old female with past medical history of CHF, COPD, chronic kidney disease, diabetes, anxiety, endometriosis, knee pain, benign breast mass x2, DVT, back pain, left hip pain, hyperlipidemia, essential hypertension urinary incontinence, recently admitted at [facility] with respiratory failure secondary to pneumonia, CHF requiring intubation, antibiotics from 09/29/2022 to 10/11/2022.?Patient presented to the ED at [facility] on 10/22/2022 after she was found with altered mental status at [facility], currently intubated in the ICU with multifactorial respiratory failure. No overnight events, Tmax was 99.8 last evening. Review of Systems Review of Systems: ROS unobtainable: Yes unobtainable due to endotracheal tube Exam Narrative: General: Int/sed HEENT: Atraumatic, normocephalic, mucous membranes moist CV: irregularly irregular, S1, S2 Lungs: Coarse BS, unlabored breathing on vent Abdomen: Soft, nontender, nondistended Extremities: Normal to inspection, + edema Psych: Unable to assess Objective Data Vital Signs Vital Signs: Vital Signs - 24 hr 10/24/22 08:00 10/24/22 08:00 10/24/22 08:19 Temperature Pulse Rate 53 L Respiratory Rate 13 Blood Pressure Pulse Oximetry Oxygen Delivery Fraction of I
[2022-10-25] MEDS: BUDESONIDE RESPULE NEB 0.5 MG/2 ML AMP INHALATION ×2 (08:11→20:39)
[2022-10-25] MEDS: MINERAL OIL/WHITE PETROLATUM OINTMENT 1 APPLIC EACH EYE ×2 (08:28→19:59)
[2022-10-25] MEDS: FUROSEMIDE INJ 40 MG/4 ML VIAL IV PUSH (08:28)
[2022-10-25] MEDS: PANTOPRAZOLE SODIUM IV 40 MG VIAL IV PUSH ×2 (08:28→19:48)
[2022-10-25] MEDS: HYDROcodone/acetaminophen (*CRX) 5-325 MG TABLET 1 TAB PO ×2 (08:29→16:28)
[2022-10-25] MEDS: polyethylene glycoL 3350 17 GM POWD.PACK PO (08:29)
[2022-10-25] MEDS: PROPOFOL IV EMULSION 100 ML 23.83 MG IV CONT ×3 (08:37→15:49)
[2022-10-25] MEDS: CEFEPIME 1 GM/NS 50 ML 1 GM/50 ML BAG IVPB ×2 (08:57→19:50)
--- NOTE | 2022-10-25 09:27 | WPDINTPN ---
Progress Note: A&P Assessment and Plan (1) GI bleed: Code(s): K92.2 - Gastrointestinal hemorrhage, unspecified Status: Acute Assessment and Plan: Patient with large amount of coffee-ground drainage from OG tube on admission -GI has been consulted -hemoglobin dropped from 10.0 on admission to 9.1 on 10/23 -hold apixaban -10/24: bilious drainage in the NG tube -continue Protonix IV q.12 hours -hemoglobin has remained stable, continue to monitor (2) Acute respiratory failure with hypoxia: Code(s): J96.01 - Acute respiratory failure with hypoxia Status: Acute Assessment and Plan: Acute respiratory failure likely related to CHF exacerbation and/or COPD exacerbation, AFib RVR -10/22/2022: Intubated in the ER upon arrival -currently on CMV mode of ventilation, peep of 5 and 40% FiO2, wean FiO2 to maintain O2 sats greater than 92% -chest x-ray this morning: Cardiomegaly with stable pulmonary edema.. Small pleural effusions, with slight worsening on the left, and associated bibasilar airspace opacities, atelectasis versus pneumonia.. Right upper extremity PICC with a short segment looped in the distal internal jugular vein and its tip ending in the brachiocephalic vein -continue bronchodilators and pulmicort -continue propofol, patient still remains awake and follows commands -10/24 Lasix 40 mg IV x1 was given this morning -10/25: Repeat Lasix 10/24; patient did not do well on breathing trial -continue cefepime and vancomycin (10/22) as she was recently admitted to the hospital at [facility] for pneumonia she has been in a rehab 10/12/2022 -7: Blood cultures no growth x2 -10/22: MRSA screen negative 10/25: Sputum cultures pending -10/22 CT chest noncontrast There is no evidence of any significant mediastinal, hilar or axillary lymphadenopathy. The mediastinal soft tissues appear normal. Cardiomegaly noted. No pericardial effusion. Minimal right pleural effusion present. Large calcified right basilar granuloma present. There is mild left basilar scarring. Images through the upper abdomen reveal calcified splenic granulomas. Impression: Minimal right pleural effusion. Cardiomegaly. (3) Afib: Code(s): I48.91 - Unspecified atrial fibrillation Status: Acute Assessment and Plan: Currently in rhythm, rate controlled Patient has a history of AFib, on apixaban at the rehab center -hold apixaban due to coffee-ground drainage through her OG tube on admission, drop in hemoglobin -will hold metoprolol due to borderline blood pressures (4) Encephalopathy: Code(s): G93.40 - Encephalopathy, unspecified Status: Acute Assessment and Plan: RESOLVED Encephalopathy likely related to hypercapnia, hypoxia -currently on mechanical ventilation, adequate oxygenation on ABGs -off sedation patient did open her eyes and follows simple commands in all extremities (5) Type 2 diabetes mellitus: Code(s): E11.9 - Type 2 diabetes mellitus without complications Status: Acute Assessment and Plan: Accu-Cheks and sliding scale insulin (6) CHF (congestive heart failure): Code(s): I50.9 - Heart failure, unspecified Status: Acute Assessment and Plan: Patient presented with acute respiratory failure, chest x-ray showed pulmonary edema 10/22:echocardiogram -EF 65-70%, moderately increased LV wall thickness, LV diastolic function indeterminate. Basal anteroseptal and mid anteroseptal wall hypokinetic, left atrial chamber severely enlarged, moderate aortic valve sclerosis, mild to moderate mitral valve regurgitation, mild pulmonary hypertension with RVSP of 38 mmHg P.r.n. Lasix (7) GERD (gastroesophageal reflux disease): Code(s): K21.9 - Gastro-esophageal reflux disease without esophagitis Status: Acute Assessment and Plan: Continue Protonix IV q.12 hours (8) Hyperlipidemia: Code(s): E78.5 - Hyperlipidemia, unspe
[2022-10-25] MEDS: POTASSIUM CHLORIDE 20 MEQ PACKET (FOR LIQUID) 40 MEQ FEED TUBE (10:48)
[2022-10-25] MEDS: INSULIN ASPART (*BKC) 100 UNITS/ML SUB-Q ×3 (12:08→23:44)
[2022-10-25 12:33] LABS: Glucose Point of Care 219 mg/dl (65-105)
[2022-10-25] MEDS: VANCOMYCIN 1,250 MG/NS 250 ML 1,250 MG/250 ML BAG 166.67 MG IVPB (18:05)
[2022-10-25] MEDS: SENNA/DOCUSATE SODIUM TABLET 1 TAB PO (19:48)
[2022-10-25] MEDS: ATORVASTATIN 40 MG TABLET PO (19:48)
[2022-10-25] MEDS: PROPOFOL IV EMULSION 100 ML 26.81 MG IV CONT ×2 (19:51→23:39)
[2022-10-25 20:34] LABS: Glucose Point of Care 248 mg/dl (65-105)
[2022-10-25 23:49] LABS: Glucose Point of Care 221 mg/dl (65-105)
[2022-10-26] VITALS (39 sets, daily range): BP systolic 109–128; BP diastolic 37–56; PULSE 63–92; RESP 16–17; TEMP 36.4–37.7; O2SAT 81–100
[2022-10-26] MEDS: LEVALBUTEROL NEB 1.25 MG/3 ML 0.63 MG INHALATION ×4 (02:43→20:55)
[2022-10-26] MEDS: IPRATROPIUM BR 0.02% INH SOLN 0.5 MG/2.5 ML VIAL INHALATION ×4 (02:43→20:55)
[2022-10-26] MEDS: PROPOFOL IV EMULSION 100 ML 26.81 MG IV CONT ×3 (03:30→12:50)
[2022-10-26 04:40] LABS: Basophils Percent Auto 0.4 % (0.2-1.2); Eosinophils Absolute Auto 0.2 K/mm3 (0-0.3); Eosinophils Percent Auto 3.7 % (0-4.4); Hematocrit 24.7 % (37.0-47.0); Hemoglobin 7.8 g/dL (12.0-15.0); Immature Granulocyte Absolute 0.04 K/mm3 (0.00-0.031); Immature Granulocyte Percent A 0.7 % (0-0.5); Lymphocytes Absolute Auto 0.46 K/mm3 (0.9-3.2); Lymphocytes Percent Auto 8.6 % (18.3-44.2); Mean Corpuscular HGB Conc 31.6 g/dl (32-36); Mean Corpuscular Hemoglobin 31.1 pg (26-34); Mean Corpuscular Volume 98.4 fl (80-100); Mean Platelet Volume 10.7 fl (7.4-10.4); Monocytes Absolute Auto 0.5 K/mm3 (0.1-0.6); Monocytes Percent Auto 9.3 % (2.6-8.5); Neutrophils Absolute Auto 4.1 K/mm3 (1.3-6.7); Neutrophils Percent Auto 77.3 % (45.5-73.1); Platelet Count Result 119 k/mm3 (150-375); Red Blood Count 2.51 M/mm3 (4.2-5.4); Red Cell Distribution Width 15.7 % (11.5-14.5); White Blood Count 5.4 K/mm3 (4.5-10.0)
[2022-10-26 04:50] LABS: Alanine Aminotransferase 16 U/L (6-35); Alkaline Phosphatase 70 U/L (38-126); Anion Gap 5 mmol/L (8-16); Aspartate Amino Transferase 18 U/L (14-36); Bilirubin,Total 0.6 mg/dL (0.2-1.3); Blood Urea Nitrogen 27 mg/dL (7-17); Calcium 7.7 mg/dL (8.4-10.2); Carbon Dioxide 31 mmol/L (22-30); Chloride 98 mmol/L (98-107); Estimated CRCL calculation 42 ml/min; Estimated Glomerular Filt Rate 43; Glucose 263 mg/dL (65-110); Magnesium 1.8 mg/dL (1.6-2.3); Phosphorus 3.6 mg/dL (2.5-4.5); Potassium 3.8 mmol/L (3.4-5.0); Sodium 134 mmol/L (137-145)
[2022-10-26] MEDS: INSULIN ASPART (*BKC) 100 UNITS/ML SUB-Q ×3 (05:51→23:45)
[2022-10-26] MEDS: CENTRAL LINE FLUSH 10 ML IV PUSH ×3 (05:52→20:11)
[2022-10-26 06:26] LABS: Alveolar/Arterial O2 Gradient 136.5 mmHg; Base Excess ABG 5.2 mEq/l (+/-2.0); Carboxyhemoglobin 0.3 % THb (0-2.0); Fractional Inspired Oxygen 40 %; HCO3 ABG 29.7 mEq/l (22.0-26.0); Methemoglobin ABG 0.3 %THb (0-1.5); Oxygen Saturation ABG 97.7 % (95.0-100.0); Oxyhemoglobin 95.9 % THb (90.0-100.0); PCO2 ABG 43.3 mmHg (35.0-45.0); PO2 ABG 98.9 mmHg (80.0-100.0); PO2 FiO2 Ratio Arterial Blood 2.47 %; Reduced Hemoglobin 3.5 %THb (0-5.0); Total Hemoglobin 8.8 g/dL (12.0-18.0); pH ABG 7.454 (7.350-7.450)
[2022-10-26 06:30] LABS: Arterial Blood Gas PEEP 5 cmH2O; Arterial Blood Gas Vent Mode CMV; Arterial Blood Gas Ventilator rate 16 /MIN; Device VENTILATOR; Site Drawn LEFT BRACHIAL
[2022-10-26 06:31] LABS: Arterial Blood Gas Tidal Volume 400 ml
[2022-10-26] MEDS: BUDESONIDE RESPULE NEB 0.5 MG/2 ML AMP INHALATION ×2 (08:00→20:55)
[2022-10-26] MEDS: POTASSIUM CHLORIDE 20 MEQ PACKET (FOR LIQUID) 40 MEQ FEED TUBE (09:05)
[2022-10-26] MEDS: CEFEPIME 1 GM/NS 50 ML 1 GM/50 ML BAG IVPB ×2 (09:05→20:11)
[2022-10-26] MEDS: polyethylene glycoL 3350 17 GM POWD.PACK PO (09:06)
[2022-10-26] MEDS: FUROSEMIDE INJ 40 MG/4 ML VIAL IV PUSH ×2 (09:06→23:45)
[2022-10-26] MEDS: PANTOPRAZOLE SODIUM IV 40 MG VIAL IV PUSH ×2 (09:08→20:10)
[2022-10-26] MEDS: MINERAL OIL/WHITE PETROLATUM OINTMENT 1 APPLIC EACH EYE ×2 (09:08→20:11)
[2022-10-26] MEDS: INSULIN GLARGINE (*BKC) 100 UNITS/ML SUB-Q (09:12)
--- NOTE | 2022-10-26 11:17 | WPDINTPN ---
Progress Note: A&P Assessment and Plan (1) GI bleed: Code(s): K92.2 - Gastrointestinal hemorrhage, unspecified Status: Acute Assessment and Plan: Patient with large amount of coffee-ground drainage from OG tube on admission -GI has been consulted -hemoglobin dropped from 10.0 on admission to 9.1 on 10/23 -hold apixaban -10/24: bilious drainage in the NG tube -continue Protonix IV q.12 hours -10/26: patient dropped her hemoglobin to 7.8 -continue SCDs (2) Acute respiratory failure with hypoxia: Code(s): J96.01 - Acute respiratory failure with hypoxia Status: Acute Assessment and Plan: Acute respiratory failure likely related to CHF exacerbation and/or COPD exacerbation, AFib RVR -10/22/2022: Intubated in the ER upon arrival -currently on CMV mode of ventilation, peep of 5 and 40% FiO2, wean FiO2 to maintain O2 sats greater than 92% -chest x-ray this morning: Cardiomegaly with stable pulmonary edema. Stable pleural effusions with associated bibasilar airspace opacities, atelectasis versus pneumonia -continue bronchodilators and pulmicort -continue propofol, patient still remains awake and follows commands -patient has been responding well to Lasix -10/26: will repeat Lasix this morning, and this evening -: Blood cultures no growth x2 -10/22: MRSA screen negative 10/25: Sputum cultures : Normal oropharyngeal john -continue cefepime and vancomycin (10/22) as she was recently admitted to the hospital at [facility] for pneumonia and she has been in a rehab 10/12/2022 -10/26: Discontinue vancomycin and continue cefepime for now -10/22 CT chest noncontrast There is no evidence of any significant mediastinal, hilar or axillary lymphadenopathy. The mediastinal soft tissues appear normal. Cardiomegaly noted. No pericardial effusion. Minimal right pleural effusion present. Large calcified right basilar granuloma present. There is mild left basilar scarring. Images through the upper abdomen reveal calcified splenic granulomas. Impression: Minimal right pleural effusion. Cardiomegaly. (3) Afib: Code(s): I48.91 - Unspecified atrial fibrillation Status: Acute Assessment and Plan: Currently in rhythm, rate controlled Patient has a history of AFib, on apixaban at the rehab center -hold apixaban due to coffee-ground drainage through her OG tube on admission, drop in hemoglobin -will hold metoprolol due to borderline blood pressures (4) Encephalopathy: Code(s): G93.40 - Encephalopathy, unspecified Status: Acute Assessment and Plan: RESOLVED Encephalopathy likely related to hypercapnia, hypoxia -currently on mechanical ventilation, adequate oxygenation on ABGs -off sedation patient did open her eyes and follows simple commands in all extremities (5) Type 2 diabetes mellitus: Code(s): E11.9 - Type 2 diabetes mellitus without complications Status: Acute Assessment and Plan: Accu-Cheks and sliding scale insulin -will add Lantus 5 units (6) CHF (congestive heart failure): Code(s): I50.9 - Heart failure, unspecified Status: Acute Assessment and Plan: Patient presented with acute respiratory failure, chest x-ray showed pulmonary edema 10/22:echocardiogram -EF 65-70%, moderately increased LV wall thickness, LV diastolic function indeterminate. Basal anteroseptal and mid anteroseptal wall hypokinetic, left atrial chamber severely enlarged, moderate aortic valve sclerosis, mild to moderate mitral valve regurgitation, mild pulmonary hypertension with RVSP of 38 mmHg P.r.n. Lasix (7) GERD (gastroesophageal reflux disease): Code(s): K21.9 - Gastro-esophageal reflux disease without esophagitis Status: Acute Assessment and Plan: Continue Protonix IV q.12 hours (8) Hyperlipidemia: Code(s): E78.5 - Hyperlipidemia, unspecified Status: Acute Assessment and Plan: Continue atorvas
--- NOTE | 2022-10-26 11:37 | PM.IMPN ---
Progress Note: A&P Assessment and Plan (1) Acute respiratory failure with hypoxia: Code(s): J96.01 - Acute respiratory failure with hypoxia Status: Acute Assessment and Plan: Multifactorial, likely secondary to CHF exacerbation as well as COPD exacerbation and atrial fibrillation Appreciate axle and frame mechanic management of the ventilator, multiple failed weaning attempts Vancomycin and cefepime initiated 10/22 (2) Chronic a-fib: Code(s): I48.20 - Chronic atrial fibrillation, unspecified Status: Acute Assessment and Plan: Continue Eliquis, currently rate controlled with metoprolol (3) Encephalopathy: Code(s): G93.40 - Encephalopathy, unspecified Status: Acute Assessment and Plan: Suspect secondary to hypercapnic respiratory failure, continue intubation, ventilation management Appears resolved (4) Type 2 diabetes mellitus: Code(s): E11.9 - Type 2 diabetes mellitus without complications Status: Acute Assessment and Plan: Accu-Cheks, sliding scale insulin, A1c 6.7 Blood glucose reviewed 10/26, sugars a little on the high side, defer to hooker laster and axle and frame mechanic for management (5) CHF (congestive heart failure): Code(s): I50.9 - Heart failure, unspecified Status: Acute Assessment and Plan: Echo 10/22 showed EF 65-70% with mild pulmonary hypertension and lnyk-hb-xantesbc valvular disease, no mention of diastolic function, cont lasix (6) Hyperlipidemia: Code(s): E78.5 - Hyperlipidemia, unspecified Status: Acute Assessment and Plan: Cont statin (7) Hypertension: Code(s): I10 - Essential (primary) hypertension Status: Acute Assessment and Plan: Blood pressures reviewed 10/26 (8) COPD (chronic obstructive pulmonary disease): Code(s): J44.9 - Chronic obstructive pulmonary disease, unspecified Status: Acute Assessment and Plan: Cont nebs (9) Anxiety: Code(s): F41.9 - Anxiety disorder, unspecified Status: Acute Assessment and Plan: Cont lexapro when able (10) GI bleed: Code(s): K92.2 - Gastrointestinal hemorrhage, unspecified Status: Acute Assessment and Plan: Patient with large amount of coffee-ground drainage from OG tube GI will be consulted on Thursday hemoglobin dropped from 10.0 on admission to 9.1 on 10/23 will monitor H&H Q 6 hours hold apixaban bilious drainage in the NG tube Protonix IV q.12 hours 10/25: hgb stable at 8.5 today 10/26: hgb dropped a bit to 7.8 today, monitor Plan DVT prophylaxis with SCDs, eliquis on hold GI prophylaxis with PPI Code status full code Tube feeds per axle and frame mechanic Subjective Date/time seen: 10/26/22 11:37 Interval history: 76 year old female with past medical history of CHF, COPD, chronic kidney disease, diabetes, anxiety, endometriosis, knee pain, benign breast mass x2, DVT, back pain, left hip pain, hyperlipidemia, essential hypertension urinary incontinence, recently admitted at [facility] with respiratory failure secondary to pneumonia, CHF requiring intubation, antibiotics from 09/29/2022 to 10/11/2022.?Patient presented to the ED at [facility] on 10/22/2022 after she was found with altered mental status at [facility], currently intubated in the ICU with multifactorial respiratory failure. No overnight events, Tmax was 99.8 last evening. Review of Systems Review of Systems: ROS unobtainable: Yes unobtainable due to endotracheal tube Exam Narrative: General: Int/sed HEENT: Atraumatic, normocephalic, mucous membranes moist CV: irregularly irregular, S1, S2 Lungs: Coarse BS, unlabored breathing on vent Abdomen: Soft, nontender, nondistended Extremities: Normal to inspection, + edema Psych: Unable to assess Objective Data Vital Signs Vital Signs: Vital Signs - 24 hr 10/25/22 11:39
[2022-10-26 12:15] LABS: Glucose Point of Care 280 mg/dl (65-105)
[2022-10-26] MEDS: CITALOPRAM HYDROBROMIDE 10 MG TABLET PO (12:49)
[2022-10-26 14:18] LABS: Triglycerides 138 mg/dL (<150)
[2022-10-26] MEDS: METOCLOPRAMIDE HCL INJ 10 MG/2 ML VIAL 5 MG IV PUSH ×2 (14:55→17:10)
[2022-10-26] MEDS: PROPOFOL IV EMULSION 100 ML 23.83 MG IV CONT ×3 (15:19→22:50)
[2022-10-26 17:38] LABS: Glucose Point of Care 188 mg/dl (65-105)
[2022-10-26] MEDS: ATORVASTATIN 40 MG TABLET PO (20:11)
[2022-10-26] MEDS: SENNA/DOCUSATE SODIUM TABLET 1 TAB PO (20:11)
[2022-10-26 23:47] LABS: Glucose Point of Care 232 mg/dl (65-105)
[2022-10-27] VITALS (43 sets, daily range): BP systolic 111–137; BP diastolic 37–75; PULSE 58–79; RESP 12–30; TEMP 36.7–37.2; O2SAT 91–100
[2022-10-27] MEDS: METOCLOPRAMIDE HCL INJ 10 MG/2 ML VIAL 5 MG IV PUSH ×4 (00:05→18:54)
[2022-10-27] MEDS: LEVALBUTEROL NEB 1.25 MG/3 ML 0.63 MG INHALATION ×4 (02:40→20:46)
[2022-10-27] MEDS: IPRATROPIUM BR 0.02% INH SOLN 0.5 MG/2.5 ML VIAL INHALATION ×4 (02:40→20:46)
[2022-10-27] MEDS: PROPOFOL IV EMULSION 100 ML 23.83 MG IV CONT (03:02)
[2022-10-27 05:24] LABS: Basophils Percent Auto 0.3 % (0.2-1.2); Eosinophils Absolute Auto 0.3 K/mm3 (0-0.3); Eosinophils Percent Auto 4.1 % (0-4.4); Hematocrit 25.6 % (37.0-47.0); Hemoglobin 8.1 g/dL (12.0-15.0); Immature Granulocyte Absolute 0.06 K/mm3 (0.00-0.031); Immature Granulocyte Percent A 0.8 % (0-0.5); Lymphocytes Absolute Auto 0.36 K/mm3 (0.9-3.2); Lymphocytes Percent Auto 4.9 % (18.3-44.2); Mean Corpuscular HGB Conc 31.6 g/dl (32-36); Mean Corpuscular Hemoglobin 31.4 pg (26-34); Mean Corpuscular Volume 99.2 fl (80-100); Mean Platelet Volume 11.2 fl (7.4-10.4); Monocytes Absolute Auto 0.6 K/mm3 (0.1-0.6); Monocytes Percent Auto 8.3 % (2.6-8.5); Neutrophils Percent Auto 81.6 % (45.5-73.1); Platelet Count Result 124 k/mm3 (150-375); Red Blood Count 2.58 M/mm3 (4.2-5.4); Red Cell Distribution Width 15.7 % (11.5-14.5); White Blood Count 7.3 K/mm3 (4.5-10.0)
[2022-10-27 05:36] LABS: Alanine Aminotransferase 17 U/L (6-35); Albumin Level 3.2 g/dL (3.5-5.1); Alkaline Phosphatase 77 U/L (38-126); Anion Gap 6 mmol/L (8-16); Aspartate Amino Transferase 18 U/L (14-36); Bilirubin,Total 0.7 mg/dL (0.2-1.3); Blood Urea Nitrogen 30 mg/dL (7-17); Calcium 8.1 mg/dL (8.4-10.2); Carbon Dioxide 32 mmol/L (22-30); Chloride 96 mmol/L (98-107); Estimated CRCL calculation 46 ml/min; Estimated Glomerular Filt Rate 48; Glucose 319 mg/dL (65-110); Magnesium 1.8 mg/dL (1.6-2.3); Phosphorus 3.8 mg/dL (2.5-4.5); Potassium 3.8 mmol/L (3.4-5.0); Sodium 134 mmol/L (137-145); Triglycerides 101 mg/dL (<150)
[2022-10-27] MEDS: CENTRAL LINE FLUSH 10 ML IV PUSH ×3 (06:09→21:08)
[2022-10-27] MEDS: INSULIN ASPART (*BKC) 100 UNITS/ML SUB-Q ×3 (06:09→18:53)
[2022-10-27 06:38] LABS: Acanthocytes 2+ (NORMAL); Anisocytosis 1+ (NORMAL); Platelet Estimate Adequate (Adequate); Schistocytes Rare (NORMAL)
[2022-10-27 06:55] LABS: Alveolar/Arterial O2 Gradient 152.7 mmHg; Carboxyhemoglobin 0.3 % THb (0-2.0); Fractional Inspired Oxygen 40 %; HCO3 ABG 29.2 mEq/l (22.0-26.0); Methemoglobin ABG 0.4 %THb (0-1.5); Oxygen Content ABG 15.5 %vol (16.0-22.0); Oxygen Saturation ABG 97.6 % (95.0-100.0); Oxyhemoglobin 95.8 % THb (90.0-100.0); PO2 FiO2 Ratio Arterial Blood 2.25 %; Reduced Hemoglobin 3.5 %THb (0-5.0); Total Hemoglobin 11.4 g/dL (12.0-18.0)
[2022-10-27 06:58] LABS: Arterial Blood Gas Vent Mode CMV; Arterial Blood Gas Ventilator rate 16 /MIN; Device VENTILATOR; Modified Allen's Test Pass; Site Drawn RIGHT RADIAL; pH ABG 7.515 (7.350-7.450)
[2022-10-27 06:59] LABS: Arterial Blood Gas PEEP 5 cmH2O; Arterial Blood Gas Tidal Volume 400 ml
[2022-10-27] MEDS: FUROSEMIDE INJ 40 MG/4 ML VIAL IV PUSH (07:52)
[2022-10-27] MEDS: MAGNESIUM SULF 2 GM/WATER 50ML 2 GM/50 ML BAG IVPB (07:52)
[2022-10-27] MEDS: POTASSIUM CHLORIDE 20 MEQ PACKET (FOR LIQUID) 40 MEQ PO (07:52)
[2022-10-27] MEDS: polyethylene glycoL 3350 17 GM POWD.PACK PO (08:01)
[2022-10-27] MEDS: PANTOPRAZOLE SODIUM IV 40 MG VIAL IV PUSH ×2 (08:02→21:08)
[2022-10-27] MEDS: MINERAL OIL/WHITE PETROLATUM OINTMENT 1 APPLIC EACH EYE ×2 (08:02→21:08)
[2022-10-27] MEDS: CITALOPRAM HYDROBROMIDE 10 MG TABLET PO (08:02)
[2022-10-27] MEDS: dexmedeTOMIDine 400 MCG/100 ML 400 MCG/100 ML BAG IV CONT (08:05)
[2022-10-27] MEDS: INSULIN GLARGINE (*BKC) 100 UNITS/ML 10 UNITS SUB-Q (08:06)
[2022-10-27] MEDS: CEFEPIME 1 GM/NS 50 ML 1 GM/50 ML BAG IVPB ×2 (08:06→21:07)
[2022-10-27] MEDS: PROPOFOL IV EMULSION 100 ML 14.9 MG IV CONT (08:07)
--- NOTE | 2022-10-27 08:11 | PM.IMPN ---
Progress Note: A&P Assessment and Plan (1) Acute respiratory failure with hypoxia: Code(s): J96.01 - Acute respiratory failure with hypoxia Status: Acute Assessment and Plan: Multifactorial, likely secondary to CHF exacerbation as well as COPD exacerbation and atrial fibrillation Appreciate corrosion engineer management of the ventilator, multiple failed weaning attempts Vancomycin and cefepime initiated 10/22 10/27: attempting weaning trials again today, going better than yesterday (2) Chronic a-fib: Code(s): I48.20 - Chronic atrial fibrillation, unspecified Status: Acute Assessment and Plan: Continue Eliquis, currently rate controlled with metoprolol (3) Encephalopathy: Code(s): G93.40 - Encephalopathy, unspecified Status: Acute Assessment and Plan: Suspect secondary to hypercapnic respiratory failure, continue intubation, ventilation management Appears resolved (4) Type 2 diabetes mellitus: Code(s): E11.9 - Type 2 diabetes mellitus without complications Status: Acute Assessment and Plan: Accu-Cheks, sliding scale insulin, A1c 6.7 Blood glucose reviewed 10/27 (5) CHF (congestive heart failure): Code(s): I50.9 - Heart failure, unspecified Status: Acute Assessment and Plan: Echo 10/22 showed EF 65-70% with mild pulmonary hypertension and [id number] valvular disease, no mention of diastolic function, cont lasix (6) Hyperlipidemia: Code(s): E78.5 - Hyperlipidemia, unspecified Status: Acute Assessment and Plan: Cont statin (7) Hypertension: Code(s): I10 - Essential (primary) hypertension Status: Acute Assessment and Plan: Blood pressures reviewed 10/27 (8) COPD (chronic obstructive pulmonary disease): Code(s): J44.9 - Chronic obstructive pulmonary disease, unspecified Status: Acute Assessment and Plan: Cont nebs (9) Anxiety: Code(s): F41.9 - Anxiety disorder, unspecified Status: Acute Assessment and Plan: Cont lexapro when able (10) GI bleed: Code(s): K92.2 - Gastrointestinal hemorrhage, unspecified Status: Acute Assessment and Plan: Patient with large amount of coffee-ground drainage from OG tube GI will be consulted on Thursday hemoglobin dropped from 10.0 on admission to 9.1 on 10/23 will monitor H&H Q 6 hours hold apixaban bilious drainage in the NG tube Protonix IV q.12 hours 10/25: hgb stable at 8.5 today 10/26: hgb dropped a bit to 7.8 today, monitor 10/27: hgb stable at 8.1 Plan DVT prophylaxis with SCDs, eliquis on hold GI prophylaxis with PPI Code status full code Tube feeds per corrosion engineer Subjective Date/time seen: 10/27/22 08:11 Interval history: 76 year old female with past medical history of CHF, COPD, chronic kidney disease, diabetes, anxiety, endometriosis, knee pain, benign breast mass x2, DVT, back pain, left hip pain, hyperlipidemia, essential hypertension urinary incontinence, recently admitted at [facility] with respiratory failure secondary to pneumonia, CHF requiring intubation, antibiotics from 09/29/2022 to 10/11/2022.?Patient presented to the ED at [facility] on 10/22/2022 after she was found with altered mental status at [facility], currently intubated in the ICU with multifactorial respiratory failure. No overnight events. Tmax 99.8 overnight. Intubated. Currently on extubation trial, doing well. Review of Systems Review of Systems: ROS unobtainable: Yes unobtainable due to mental status Exam Narrative: General: Int, off sedation, follows commands HEENT: Atraumatic, normocephalic, mucous membranes moist CV: irregularly irregular, S1, S2 Lungs: Coarse BS, unlabored breathing on vent Abdomen: Soft, nontender, nondistended Extremities: Normal to inspection, + edema Psych: Unable to assess
[2022-10-27] MEDS: BUDESONIDE RESPULE NEB 0.5 MG/2 ML AMP INHALATION ×2 (09:18→20:46)
--- NOTE | 2022-10-27 09:36 | WPDINTPN ---
Progress Note: A&P Assessment and Plan (1) GI bleed: Code(s): K92.2 - Gastrointestinal hemorrhage, unspecified Status: Acute Assessment and Plan: Patient with large amount of coffee-ground drainage from OG tube on admission -hemoglobin dropped from 10.0 on admission to 9.1 on 10/23 -hold apixaban -10/24: bilious drainage in the NG tube -continue Protonix IV q.12 hours -hemoglobin stable -continue SCDs -will have GI evaluate the patient (2) Acute respiratory failure with hypoxia: Code(s): J96.01 - Acute respiratory failure with hypoxia Status: Acute Assessment and Plan: Acute respiratory failure likely related to CHF exacerbation and/or COPD exacerbation, AFib RVR -10/22/2022: Intubated in the ER upon arrival -currently on CMV mode of ventilation, peep of 5 and 40% FiO2, wean FiO2 to maintain O2 sats greater than 92% -chest x-ray this morning: Airspace opacities in right mid and lower lung zones and left lower lung zone with improvement on the right, consistent with atelectasis versus pneumonia.. Stable small pleural effusions.. Cardiomegaly. -continue bronchodilators and pulmicort -will discontinue propofol lungs restart Precedex infusion once more awake will place patient on breathing trial -patient has been responding well to Lasix -will continue Lasix -: Blood cultures no growth x2 -10/22: MRSA screen negative 10/25: Sputum cultures : Normal oropharyngeal john -continue cefepime and vancomycin (10/22) as she was recently admitted to the hospital at [facility] for pneumonia and she has been in a rehab 10/12/2022 -10/26: Discontinue vancomycin and continue cefepime for now (for total of 7 days) -10/22 CT chest noncontrast There is no evidence of any significant mediastinal, hilar or axillary lymphadenopathy. The mediastinal soft tissues appear normal. Cardiomegaly noted. No pericardial effusion. Minimal right pleural effusion present. Large calcified right basilar granuloma present. There is mild left basilar scarring. Images through the upper abdomen reveal calcified splenic granulomas. Impression: Minimal right pleural effusion. Cardiomegaly. (3) Afib: Code(s): I48.91 - Unspecified atrial fibrillation Status: Acute Assessment and Plan: Currently in rhythm, rate controlled Patient has a history of AFib, on apixaban at the rehab center -hold apixaban due to coffee-ground drainage through her OG tube on admission, drop in hemoglobin -will hold metoprolol due to borderline blood pressures (4) Encephalopathy: Code(s): G93.40 - Encephalopathy, unspecified Status: Acute Assessment and Plan: RESOLVED Encephalopathy likely related to hypercapnia, hypoxia -currently on mechanical ventilation, adequate oxygenation on ABGs -off sedation patient did open her eyes and follows simple commands in all extremities (5) Type 2 diabetes mellitus: Code(s): E11.9 - Type 2 diabetes mellitus without complications Status: Acute Assessment and Plan: Accu-Cheks and sliding scale insulin -increase Lantus (6) CHF (congestive heart failure): Code(s): I50.9 - Heart failure, unspecified Status: Acute Assessment and Plan: Patient presented with acute respiratory failure, chest x-ray showed pulmonary edema 10/22:echocardiogram -EF 65-70%, moderately increased LV wall thickness, LV diastolic function indeterminate. Basal anteroseptal and mid anteroseptal wall hypokinetic, left atrial chamber severely enlarged, moderate aortic valve sclerosis, mild to moderate mitral valve regurgitation, mild pulmonary hypertension with RVSP of 38 mmHg P.r.n. Lasix (7) GERD (gastroesophageal reflux disease): Code(s): K21.9 - Gastro-esophageal reflux disease without esophagitis Status: Acute Assessment and Plan: Continue Protonix IV q.12 hours (8) Hyperlipidemia: Code(s): E78.5 - Hyperlipidemia, unspecifie
--- NOTE | 2022-10-27 11:34 | PCFNICU ---
ICU Rounding Note: Pt current nutrition is Vital AF 1.2 at 60 ml/hr. Last recorded weight is 98 kg. Bowel Motility:+Bm reported 10/23 Labs Reviewed:Glu 319,BUN 30, Cr 1.10,Alb 3.2, BUN 30 Meds Noted:Lasix, Lantus, Reglan Skin:WNL Additional Notes: Patient remains on mechanical vent. Plans for breathing trial today. GI consult. Tube feedings continue at this time of Vital AF 1.2 at 60 ml/hr (goal) and tolerating per nursing. Flush 30 ml q 4 hours. Agree with diet orders. Will monitor in ICU rounds and reassessing every Thursday and Thursday.
--- NOTE | 2022-10-27 12:41 | P.CDI_ITS ---
CDI Query Clarification Request Documented history of CHF. CHF noted on the assessment and plan. Elevated BNP on 10/22/22 lab work. Chest Xray from 10/22/22 notes pulmonary edema. Patient receiving Lasix. Please specify type and acuity of heart failure if known. * Acute * Chronic * Acute on Chronic * Unknown * Systolic * Diastolic * Combined Systolic and Diastolic * Unknown <Chacha Babcock RN - Last Filed: 10/27/22 12:45> unknown Documented history of CHF. CHF noted on the assessment and plan. Elevated BNP on 10/22/22 lab work. Chest Xray from 10/22/22 notes pulmonary edema. Patient receiving Lasix. Please specify type and acuity of heart failure if known. * Acute * Chronic * Acute on Chronic * Unknown * Systolic * Diastolic * Combined Systolic and Diastolic * Unknown <Naheed Rose DO - Last Filed: 11/05/22 09:03>
--- NOTE | 2022-10-27 12:41 | WPDCDIQUERY2 ---
CDI Query Clarification Request Documented history of CHF. CHF noted on the assessment and plan. Elevated BNP on 10/22/22 lab work. Chest Xray from 10/22/22 notes pulmonary edema. Patient receiving Lasix. Please specify type and acuity of heart failure if known. Acute Chronic Acute on Chronic Unknown Systolic Diastolic Combined Systolic and Diastolic Unknown <Chacha Babcock RN - Last Filed: 10/27/22 12:45> unknown Documented history of CHF. CHF noted on the assessment and plan. Elevated BNP on 10/22/22 lab work. Chest Xray from 10/22/22 notes pulmonary edema. Patient receiving Lasix. Please specify type and acuity of heart failure if known. Acute Chronic Acute on Chronic Unknown Systolic Diastolic Combined Systolic and Diastolic Unknown <Naheed Rose DO - Last Filed: 11/05/22 09:03>
[2022-10-27 13:13] LABS: Glucose Point of Care 372 mg/dl (65-105)
[2022-10-27 19:15] LABS: Glucose Point of Care 371 mg/dl (65-105)
[2022-10-27] MEDS: ATORVASTATIN 40 MG TABLET PO (21:08)
[2022-10-27] MEDS: SENNA/DOCUSATE SODIUM TABLET 1 TAB PO (21:08)
[2022-10-28] VITALS (33 sets, daily range): BP systolic 112–144; BP diastolic 37–74; PULSE 49–130; RESP 16–478; TEMP 36.9–37.2; O2SAT 91–99
[2022-10-28 00:36] LABS: Glucose Point of Care 326 mg/dl (65-105)
[2022-10-28] MEDS: METOCLOPRAMIDE HCL INJ 10 MG/2 ML VIAL 5 MG IV PUSH ×3 (00:43→11:21)
[2022-10-28] MEDS: INSULIN ASPART (*BKC) 100 UNITS/ML SUB-Q ×4 (00:43→12:42)
[2022-10-28] MEDS: LEVALBUTEROL NEB 1.25 MG/3 ML 0.63 MG INHALATION ×3 (02:19→14:01)
[2022-10-28] MEDS: IPRATROPIUM BR 0.02% INH SOLN 0.5 MG/2.5 ML VIAL INHALATION ×4 (02:19→20:00)
[2022-10-28] MEDS: dexmedeTOMIDine 400 MCG/100 ML 400 MCG/100 ML BAG 7.35 MCG IV CONT (02:55)
--- NOTE | 2022-10-28 03:17 | PC.NURSE ---
0300: Patient's daughter, September, called the unit for an update. RN stated that the patient was doing well tonight. When asked if the patient had any episodes of getting worked up RN replied that she had a couple. RN explained that the patient was upset and wrote on her clipboard asking how many days she had been intubated she wrote 5 days . RN told the patient that she got here on the and that today was the so today would be day 7. Upon hearing this the patient's daughter got very upset and started yelling It has not been 7 days! She got there on Thursday! It has not been 7 days. RN confirmed that the patient was intubated on Thursday but did not argue. RN went on to explain that she titrated the patient's sedation up and was able to console the patient the only other time she had an episode. The patient's daughter went on to ask how the patient's VS were. RN relayed the most recent set and once again reassured her that the patient was doing well tonight. The daughter expressed frustration that she could not find this RN or the day shift RN before she left. RN apologized and explained they had been doing report. The daughter confirmed that the patient was going to get her anxiety medicine at 0900 and asked RN to call if she needed to come up. RN reassured her that she would. Daughter reiterated that this RN call before it's too late. RN attempted to reassure her by saying I promise I will. I'm taking good care of her. I know this is scary and stressful but she truly is doing well tonight. Daughter again asked RN to call her if the patient needed her to which RN assured her she would.
[2022-10-28] MEDS: CENTRAL LINE FLUSH 10 ML IV PUSH ×3 (05:04→21:27)
[2022-10-28 05:12] LABS: Base Excess ABG 5.6 mEq/l (+/-2.0); Carboxyhemoglobin 0.3 % THb (0-2.0); Fractional Inspired Oxygen 30 %; Methemoglobin ABG 0.3 %THb (0-1.5); Oxygen Content ABG 15.1 %vol (16.0-22.0); Oxygen Saturation ABG 97.2 % (95.0-100.0); Oxyhemoglobin 95.5 % THb (90.0-100.0); PCO2 ABG 37.9 mmHg (35.0-45.0); PO2 ABG 85.4 mmHg (80.0-100.0); PO2 FiO2 Ratio Arterial Blood 2.85 %; Reduced Hemoglobin 3.9 %THb (0-5.0); Total Hemoglobin 11.2 g/dL (12.0-18.0)
[2022-10-28 05:14] LABS: pH ABG 7.502 (7.350-7.450)
[2022-10-28 05:15] LABS: Arterial Blood Gas Ventilator rate 16 /MIN; Device VENTILATOR; Modified Allen's Test Pass; Site Drawn RIGHT RADIAL
[2022-10-28 05:16] LABS: Arterial Blood Gas PEEP 5 cmH2O; Arterial Blood Gas Tidal Volume 370 ml; Arterial Blood Gas Vent Mode CMV
[2022-10-28 05:17] LABS: Basophils Percent Auto 0.3 % (0.2-1.2); Eosinophils Absolute Auto 0.4 K/mm3 (0-0.3); Eosinophils Percent Auto 6.1 % (0-4.4); Hematocrit 26.1 % (37.0-47.0); Hemoglobin 8.2 g/dL (12.0-15.0); Immature Granulocyte Absolute 0.06 K/mm3 (0.00-0.031); Lymphocytes Absolute Auto 0.43 K/mm3 (0.9-3.2); Lymphocytes Percent Auto 7.3 % (18.3-44.2); Mean Corpuscular HGB Conc 31.4 g/dl (32-36); Mean Corpuscular Hemoglobin 31.1 pg (26-34); Mean Corpuscular Volume 98.9 fl (80-100); Mean Platelet Volume 11.9 fl (7.4-10.4); Monocytes Absolute Auto 0.5 K/mm3 (0.1-0.6); Monocytes Percent Auto 8.9 % (2.6-8.5); Neutrophils Absolute Auto 4.5 K/mm3 (1.3-6.7); Neutrophils Percent Auto 76.4 % (45.5-73.1); Platelet Count Result 125 k/mm3 (150-375); Red Blood Count 2.64 M/mm3 (4.2-5.4); Red Cell Distribution Width 15.7 % (11.5-14.5); White Blood Count 5.9 K/mm3 (4.5-10.0)
[2022-10-28 05:26] LABS: Alanine Aminotransferase 22 U/L (6-35); Albumin Level 3.4 g/dL (3.5-5.1); Alkaline Phosphatase 89 U/L (38-126); Anion Gap 2 mmol/L (8-16); Aspartate Amino Transferase 27 U/L (14-36); Bilirubin,Total 0.8 mg/dL (0.2-1.3); Blood Urea Nitrogen 34 mg/dL (7-17); Calcium 8.5 mg/dL (8.4-10.2); Carbon Dioxide 36 mmol/L (22-30); Chloride 95 mmol/L (98-107); Estimated CRCL calculation 41 ml/min; Estimated Glomerular Filt Rate 43; Glucose 335 mg/dL (65-110); Magnesium 2.3 mg/dL (1.6-2.3); Phosphorus 3.4 mg/dL (2.5-4.5); Potassium 4.2 mmol/L (3.4-5.0); Sodium 133 mmol/L (137-145); Triglycerides 102 mg/dL (<150)
[2022-10-28] MEDS: ACETAMINOPHEN 325 MG TABLET 650 MG PO (05:46)
[2022-10-28] MEDS: BUDESONIDE RESPULE NEB 0.5 MG/2 ML AMP INHALATION ×2 (07:43→20:00)
[2022-10-28] MEDS: INSULIN GLARGINE (*BKC) 100 UNITS/ML 10 UNITS SUB-Q ×2 (08:27→09:23)
[2022-10-28] MEDS: CEFEPIME 1 GM/NS 50 ML 1 GM/50 ML BAG IVPB ×2 (08:27→22:30)
[2022-10-28] MEDS: polyethylene glycoL 3350 17 GM POWD.PACK PO (08:29)
[2022-10-28] MEDS: MINERAL OIL/WHITE PETROLATUM OINTMENT 1 APPLIC EACH EYE (08:30)
[2022-10-28] MEDS: CITALOPRAM HYDROBROMIDE 10 MG TABLET PO (08:30)
[2022-10-28] MEDS: PANTOPRAZOLE SODIUM IV 40 MG VIAL IV PUSH ×2 (08:30→21:27)
[2022-10-28] MEDS: acetaZOLAMIDE SODIUM FOR INJ 500 MG VIAL 250 MG IV PUSH (09:22)
[2022-10-28 09:39] LABS: Glucose Point of Care 346 mg/dl (65-105)
[2022-10-28 10:16] LABS: Alveolar/Arterial O2 Gradient 74.3 mmHg; Base Excess ABG 5.7 mEq/l (+/-2.0); Device VENTILATOR; Fractional Inspired Oxygen 30 %; HCO3 ABG 30.4 mEq/l (22.0-26.0); Modified Allen's Test Pass; Oxygen Content ABG 12.8 %vol (16.0-22.0); Oxygen Saturation ABG 96.8 % (95.0-100.0); PCO2 ABG 45.1 mmHg (35.0-45.0); PO2 ABG 86.6 mmHg (80.0-100.0); PO2 FiO2 Ratio Arterial Blood 2.89 %; Site Drawn LEFT RADIAL; Total Hemoglobin 9.5 g/dL (12.0-18.0); pH ABG 7.446 (7.350-7.450)
[2022-10-28 10:17] LABS: Arterial Blood Gas PEEP 5 cmH2O; Arterial Blood Gas Pressure Support 5 cmH2O; Arterial Blood Gas Vent Mode SPONTANEOUS
--- NOTE | 2022-10-28 11:28 | WPDINTPN ---
Progress Note: A&P Assessment and Plan (1) Acute respiratory failure with hypoxia: Code(s): J96.01 - Acute respiratory failure with hypoxia Status: Acute Assessment and Plan: Multifactorial acute respiratory failure likely related to CHF exacerbation and/or COPD exacerbation -10/22/2022: Intubated in the ER upon arrival -currently on CMV mode of ventilation, peep of 5 and 40% FiO2, wean FiO2 to maintain O2 sats greater than 92% -chest x-ray this morning: Airspace opacities in right mid and lower lung zones and left lower lung zone with improvement on the right, consistent with atelectasis versus pneumonia.. Stable small pleural effusions.. Cardiomegaly. -continue bronchodilators and pulmicort - 5/5 PSV SBT done for more than 1 hour. RSBI is acceptable but borderline, ABGI and Vitals are acceptable. Pt awake and following commands. I have discussed with patient's son and willl extubate and monitor. Will use bipap PRN. Patient may need re-intubation -will give a dose of Diamox -: Blood cultures no growth x2 -10/22: MRSA screen negative 10/25: Sputum cultures : Normal oropharyngeal john -10/26: Discontinue vancomycin and continue cefepime for now (for total of 7 days) -10/22 CT chest noncontrast There is no evidence of any significant mediastinal, hilar or axillary lymphadenopathy. The mediastinal soft tissues appear normal. Cardiomegaly noted. No pericardial effusion. Minimal right pleural effusion present. Large calcified right basilar granuloma present. There is mild left basilar scarring. Images through the upper abdomen reveal calcified splenic granulomas. Impression: Minimal right pleural effusion. Cardiomegaly. Chest x-ray shows right effusion. Will request Radiology to evaluate for ultrasound-guided thoracentesis (2) GI bleed: Code(s): K92.2 - Gastrointestinal hemorrhage, unspecified Status: Acute Assessment and Plan: Patient with large amount of coffee-ground drainage from OG tube on admission -hemoglobin dropped from 10.0 on admission to 9.1 on 10/23 -apixaban has been on hold -since then the NG drainage had become bilious -0hemoglobin has been stable -she is on Protonix IV q.12 hours which will be continue -hemoglobin stable -continue SCDs -GI consulted and consult pending (3) Afib: Code(s): I48.91 - Unspecified atrial fibrillation Status: Acute Assessment and Plan: Currently in sinus rhythm, rate controlled Patient has a history of AFib, on apixaban at the rehab center -hold apixaban due to coffee-ground drainage through her OG tube on admission, drop in hemoglobin -his start low-dose beta-tmi (4) Encephalopathy: Code(s): G93.40 - Encephalopathy, unspecified Status: Acute Assessment and Plan: RESOLVED. Patient now wake and following commands Encephalopathy likely related to hypercapnia, hypoxia (5) Type 2 diabetes mellitus: Code(s): E11.9 - Type 2 diabetes mellitus without complications Status: Acute Assessment and Plan: Accu-Cheks and sliding scale insulin -increase Lantus dose for today (6) CHF (congestive heart failure): Code(s): I50.9 - Heart failure, unspecified Status: Acute Assessment and Plan: Patient presented with acute respiratory failure, chest x-ray showed pulmonary edema 10/22:echocardiogram -EF 65-70%, moderately increased LV wall thickness, LV diastolic function indeterminate. Basal anteroseptal and mid anteroseptal wall hypokinetic, left atrial chamber severely enlarged, moderate aortic valve sclerosis, mild to moderate mitral valve regurgitation, mild pulmonary hypertension with RVSP of 38 mmHg Continue diuretic (7) GERD (gastroesophageal reflux disease): Code(s): K21.9 - Gastro-esophageal reflux disease without esophagitis Status: Acute Assessment and Plan: Continue Protonix IV q.12 hours (8) Hyperlipidemia: Code(s): E78.5 - Hyp
--- NOTE | 2022-10-28 11:29 | PCNFU ---
Nutrition Follow-Up Complete: Inadequate Oral Intake as related to mechanical ventilation as evidenced by NPO Goal: Meet estimated nutrition needs Patient is progressing towards goal. We will continue current goal. Pt current nutrition is Vital AF 1.2 at 60 ml/hr. Last recorded weight is 94.6 kg down from 99.3 kg on admit. Bowel Motility:No BM reported. Labs Reviewed:Glu 335, Cr 1.2,BUN 34, GFR 43, Na 133, Alb 3.4 Meds Noted:NovoLog, Reglan Skin:WNL Additional Notes: Patient has been extubated. Tube feedings off at this time. Discussions in ICU rounds regarding possible thoracentesis today. Will monitor in ICU rounds and reassessing every 3 days.
[2022-10-28 12:43] LABS: Glucose Point of Care 225 mg/dl (65-105)
[2022-10-28 15:28] LABS: Glucose Point of Care 138 mg/dl (65-105)
[2022-10-28 21:05] LABS: Glucose Point of Care 114 mg/dl (65-105)
[2022-10-28] MEDS: VANCOMYCIN 1,000 MG/NS 250 ML 1,000 MG/250 ML BAG 250 MG IVPB (21:28)
[2022-10-28] MEDS: METOPROLOL TARTRATE INJ 5 MG/5 ML VIAL IV PUSH (21:28)
[2022-10-28] MEDS: VANCOMYCIN 1,250 MG/NS 250 ML 1,250 MG/250 ML BAG 166.67 MG IVPB (23:28)
[2022-10-29] VITALS (30 sets, daily range): BP systolic 94–143; BP diastolic 42–71; PULSE 65–133; RESP 20–130; TEMP 36.8–38.2; O2SAT 29–98
[2022-10-29 00:06] LABS: Glucose Point of Care 106 mg/dl (65-105)
[2022-10-29] MEDS: METOPROLOL TARTRATE INJ 5 MG/5 ML VIAL IV PUSH (02:52)
[2022-10-29 05:09] LABS: Alveolar/Arterial O2 Gradient 102.2 mmHg; Base Excess ABG 5.9 mEq/l (+/-2.0); Carboxyhemoglobin 0.2 % THb (0-2.0); Fractional Inspired Oxygen 35 %; HCO3 ABG 31.7 mEq/l (22.0-26.0); Methemoglobin ABG 0.4 %THb (0-1.5); Oxygen Content ABG 14.8 %vol (16.0-22.0); Oxygen Saturation ABG 96.4 % (95.0-100.0); Oxyhemoglobin 95.6 % THb (90.0-100.0); PCO2 ABG 52.2 mmHg (35.0-45.0); PO2 ABG 86.7 mmHg (80.0-100.0); PO2 FiO2 Ratio Arterial Blood 2.48 %; Reduced Hemoglobin 3.8 %THb (0-5.0); Total Hemoglobin 10.9 g/dL (12.0-18.0); pH ABG 7.401 (7.350-7.450)
[2022-10-29 05:20] LABS: Device BIPAP; Modified Allen's Test Pass; Site Drawn RIGHT RADIAL
[2022-10-29 05:25] LABS: Inspiratory Pressure 17 cmH2O
[2022-10-29 05:26] LABS: Expiratory Pressure 7 cmH2O
[2022-10-29] MEDS: CENTRAL LINE FLUSH 10 ML IV PUSH ×3 (05:26→20:44)
[2022-10-29 05:33] LABS: Glucose Point of Care 134 mg/dl (65-105)
[2022-10-29 05:54] LABS: Basophils Percent Auto 0.4 % (0.2-1.2); Eosinophils Absolute Auto 0.4 K/mm3 (0-0.3); Eosinophils Percent Auto 6.3 % (0-4.4); Hematocrit 29.6 % (37.0-47.0); Hemoglobin 8.9 g/dL (12.0-15.0); Immature Granulocyte Absolute 0.06 K/mm3 (0.00-0.031); Immature Granulocyte Percent A 1.1 % (0-0.5); Lymphocytes Absolute Auto 0.48 K/mm3 (0.9-3.2); Lymphocytes Percent Auto 8.7 % (18.3-44.2); Mean Corpuscular HGB Conc 30.1 g/dl (32-36); Mean Corpuscular Hemoglobin 31.4 pg (26-34); Mean Corpuscular Volume 104.6 fl (80-100); Mean Platelet Volume 10.6 fl (7.4-10.4); Monocytes Absolute Auto 0.5 K/mm3 (0.1-0.6); Neutrophils Absolute Auto 4.1 K/mm3 (1.3-6.7); Neutrophils Percent Auto 74.5 % (45.5-73.1); Platelet Count Result 155 k/mm3 (150-375); Red Blood Count 2.83 M/mm3 (4.2-5.4); Red Cell Distribution Width 15.6 % (11.5-14.5); White Blood Count 5.5 K/mm3 (4.5-10.0)
[2022-10-29 06:07] LABS: Alanine Aminotransferase 27 U/L (6-35); Albumin Level 3.6 g/dL (3.5-5.1); Alkaline Phosphatase 70 U/L (38-126); Anion Gap 6 mmol/L (8-16); Aspartate Amino Transferase 31 U/L (14-36); Bilirubin,Total 0.7 mg/dL (0.2-1.3); Blood Urea Nitrogen 29 mg/dL (7-17); Calcium 8.7 mg/dL (8.4-10.2); Carbon Dioxide 30 mmol/L (22-30); Chloride 100 mmol/L (98-107); Estimated CRCL calculation 45 ml/min; Estimated Glomerular Filt Rate 48; Glucose 141 mg/dL (65-110); Magnesium 2.3 mg/dL (1.6-2.3); Phosphorus 3.8 mg/dL (2.5-4.5); Potassium 4.1 mmol/L (3.4-5.0); Sodium 136 mmol/L (137-145)
[2022-10-29] MEDS: LEVALBUTEROL NEB 1.25 MG/3 ML 0.63 MG INHALATION ×2 (07:54→20:40)
[2022-10-29] MEDS: IPRATROPIUM BR 0.02% INH SOLN 0.5 MG/2.5 ML VIAL INHALATION ×2 (07:54→20:40)
[2022-10-29] MEDS: BUDESONIDE RESPULE NEB 0.5 MG/2 ML AMP INHALATION ×2 (07:55→20:40)
[2022-10-29 08:24] LABS: Lactate Dehydrogenase 206 U/L (120-246)
[2022-10-29] MEDS: METOPROLOL TARTRATE INJ 5 MG/5 ML VIAL 2.5 MG IV PUSH (09:30)
[2022-10-29] MEDS: PANTOPRAZOLE SODIUM IV 40 MG VIAL IV PUSH ×2 (09:31→20:44)
--- NOTE | 2022-10-29 11:36 | WPDINTPN ---
Progress Note: A&P Assessment and Plan (1) Acute respiratory failure with hypoxia: Code(s): J96.01 - Acute respiratory failure with hypoxia Status: Acute Assessment and Plan: Multifactorial acute respiratory failure likely related to CHF exacerbation and/or COPD exacerbation -10/22/2022: Intubated in the ER upon arrival - 10/28: Extubated after multiple days a weaning trial Chest x-ray reviewed 1. Stable airspace opacities in left lower lung zone, consistent with atelectasis versus pneumonia. 2. Stable small right pleural effusion. 3. Cardiomegaly. Yesterday patient was placed on BiPAP which she wore through the night. I transitioned her to Airvo this morning and she is doing well at this time. Will continue to use BiPAP on as needed and at night. She does not want to be intubated even if that is detrimental to her life -chest x-ray this morning: Airspace opacities in right mid and lower lung zones and left lower lung zone with improvement on the right, consistent with atelectasis versus pneumonia.. Stable small pleural effusions.. Cardiomegaly. -continue bronchodilators and pulmicort -: Blood cultures no growth x2 -10/22: MRSA screen negative 10/25: Sputum cultures : Normal oropharyngeal john -10/22 patient was started on cefepime and vancomycin. 10/26 vancomycin was discontinued but resumed on 10/28 -10/22 CT chest noncontrast There is no evidence of any significant mediastinal, hilar or axillary lymphadenopathy. The mediastinal soft tissues appear normal. Cardiomegaly noted. No pericardial effusion. Minimal right pleural effusion present. Large calcified right basilar granuloma present. There is mild left basilar scarring. Images through the upper abdomen reveal calcified splenic granulomas. Impression: Minimal right pleural effusion. Cardiomegaly. (2) Pleural effusion: Code(s): J90 - Pleural effusion, not elsewhere classified Status: Acute Assessment and Plan: Chest x-ray showed right effusion. CT chest on presentation also showed right pleural effusion. 10/28 Patient had ultrasound-guided thoracentesis done and only 300 mL of fluid was removed. LDH and glucose is pending but Gram stain is showing Gram-positive cocci. ? Parapneumonic effusion. CT scan done earlier did not show any loculation. Will continue vancomycin and cefepime at this time. Consulted Pulmonary and discussed case with doctors Kandy for further guidance and he will evaluate patient today (3) GI bleed: Code(s): K92.2 - Gastrointestinal hemorrhage, unspecified Status: Acute Assessment and Plan: Patient with large amount of coffee-ground drainage from OG tube on admission -hemoglobin dropped from 10.0 on admission to 9.1 on 10/23 -apixaban has been on hold -since then the NG drainage had become bilious -0hemoglobin has been stable -she is on Protonix IV q.12 hours which will be continue -hemoglobin stable -continue SCDs (4) Afib: Code(s): I48.91 - Unspecified atrial fibrillation Status: Acute Assessment and Plan: Currently in sinus rhythm, rate controlled Patient has a history of AFib, on apixaban at the rehab center -hold apixaban due to coffee-ground drainage through her OG tube on admission, drop in hemoglobin -continue low-dose beta-tim (5) Encephalopathy: Code(s): G93.40 - Encephalopathy, unspecified Status: Acute Assessment and Plan: RESOLVED. Patient now awake alert oriented x3 Encephalopathy likely related to hypercapnia, hypoxia (6) Type 2 diabetes mellitus: Code(s): E11.9 - Type 2 diabetes mellitus without complications Status: Acute Assessment and Plan: Accu-Cheks and sliding scale insulin Hold Lantus as patient is NPO at this time (7) CHF (congestive heart failure): Code(s): I50.9 - Heart failure, unspecified Status: Acute Assessment and Plan: Patient presented with acute respira
[2022-10-29] MEDS: CEFEPIME 1 GM/NS 50 ML 1 GM/50 ML BAG IVPB ×2 (12:26→20:44)
[2022-10-29 12:41] LABS: Glucose Point of Care 151 mg/dl (65-105)
--- NOTE | 2022-10-29 12:52 | PCFNICU ---
ICU Rounding Note: Pt current nutrition is NPO. Last recorded weight is 96.8 kg. Bowel Motility:Last BM reported 10/23 Labs Reviewed:Glu 141, Cr 1.10,GFR 48, BUN 29, NA 136, Hct 29.6, Hgb 8.9 Meds Noted:Protonix, Atrovent. Skin: WNL Additional Notes: Patient has been made a DNR. Plans for speech evaluation today to determine appropriate feeding method. Thoracentesis performed 10/28-removing 350 ml fluid. Discussions regarding hospice/comfort care. Will monitor in ICU rounds and reassessing every 3 days.
--- NOTE | 2022-10-29 13:01 | WPDGICN ---
Assessment and Plan Assessment and plan (1) Coffee ground emesis: Code(s): K92.0 - Hematemesis Status: Acute Assessment and Plan: Patient was noted to have coffee-ground NG tube brief return when admitted to the intensive care unit on 10/22 in 10/23/2022. Since then the NG tube return has been bilious. When admitted to the intensive care unit patient had respiratory failure and required ventilator support. Most likely this is on the basis of stress gastritis. Patient remains very short of breath. She was extubated yesterday. Invasive testing such as EGD is not indicated for this patient. Since this most likely is stress gastritis I would advise treating patient with PPI such as pantoprazole. EGD should only be done for significant active bleeding. My understanding is that patient is now DNR in considering hospice care. Please let me know if the situation changes. I discussed the case with Dr. Ambriz, the welding operator who agrees with plan. (2) Chronic a-fib: Code(s): I48.20 - Chronic atrial fibrillation, unspecified Status: Acute Assessment and Plan: Patient initially anticoagulated with admitted to the hospital. This duration would coincide with when coffee-ground NG tube return was identified. This because of concern over bleeding anticoagulation been held and would agree with holding at this time unless absolutely necessary. (3) Pleural effusion: Code(s): J90 - Pleural effusion, not elsewhere classified Status: Acute (4) COPD (chronic obstructive pulmonary disease): Code(s): J44.9 - Chronic obstructive pulmonary disease, unspecified Status: Acute (5) Respiratory failure: Code(s): J96.90 - Respiratory failure, unspecified, unspecified whether with hypoxia or hypercapnia Status: Acute Assessment and Plan: Patient extubated yesterday. She remains quite short of breath. Remains very weak. Nutritional support may need to be considered with Dobbhoff NG tube. Will defer this to the family whether this should be considered. (6) CHF (congestive heart failure): Code(s): I50.9 - Heart failure, unspecified Status: Acute GI Consult Note Consult date/time: 10/29/22 13:01 Reason for consult: Coffee-ground emesis on presentation. HPI: Johana Long is a 76 year old female I am asked to see at the request of the welding operator service because of coffee-ground emesis. Patient has a history of significant respiratory issues. Patient has underlying COPD. Initially hospitalized in [place] she subsequently was transferred for pulmonary rehab to the rehab hospital. Patient at the rehab hospital from 10/12 until 517. On 10/22 patient suffered respiratory failure was taken to the emergency room at [facility] on intubated. She remained on the ventilator until yesterday when she was extubated. Patient felt have underlying congestive heart failure, COPD, pulmonary edema. Also had a pleural effusion with evidence for an ongoing infection. She currently is on high-flow supplemental oxygen has been extubated refuses to be reintubated. She states she wishes to be DNR in fact hospice is being considered. Patient's additional past medical history is significant for atrial fibrillation for which she previously was on Eliquis. This been held during most of this hospital stay. When she was intubated and NG tube was placed in initially had a large amount of coffee-ground return from the stomach. Patient's baseline hemoglobin has been in the 9 range to 9.2 range. Hemoglobin today of 8.9. Patient denies any ongoing abdominal pain. NG tube has been documented to be bilious since at least 10/24/2022. NG tube no longer in place. Patient remains somewhat short of breath. She is very weak at present. Review of Systems Review of Systems: ROS unobtainable: Yes unobtainable due to medical condition PMFSH Past Medical History Medical History (Upda
[2022-10-29] MEDS: diphenhydrAMINE HCl INJ 50 MG/ML VIAL 25 MG IV PUSH (13:43)
--- NOTE | 2022-10-29 15:14 | PM.CNPUL ---
Assessment and Plan Assessment and plan (1) Pleural effusion: Code(s): J90 - Pleural effusion, not elsewhere classified Status: Acute (2) Respiratory failure: Code(s): J96.90 - Respiratory failure, unspecified, unspecified whether with hypoxia or hypercapnia Status: Acute Assessment and Plan: 76-year-old female with a hypoxemic hypercapnic respiratory failure hospitalized at [facility] initially, and following physical therapy the rehab center presented with hypoxemic hypercapnic respiratory failure. On the day of presentation to the emergency room the patient had evidence of acute on chronic hypercapnic respiratory failure along with pulmonary edema as shown by initial chest x-ray. The patient has improved following treatment with antibiotics for possible respiratory tract infection and diuretics. He has been supported with BiPAP following extubation. On my physical exam the patient appeared very weak, with a generalized weakness and also evidence of respiratory muscle weakness as shown by a raspy voice, shallow breathing. Repeat blood gases on high-flow nasal cannula showed worsening hypercapnic respiratory failure. Patient has history of congestive heart failure with recent echocardiogram showing left ventricular diastolic dysfunction with severe enlargement of the left atrium and possibly pulmonary hypertension it is likely that the respiratory muscle weakness could be related to congestive heart failure. Patient carries diagnosis of COPD although she never smoked. She had no evidence of radiographic emphysema on chest CT. On BiPAP flow tracing there is some evidence of prolonged expiration. On clinical grounds the patient has hypercapnic respiratory failure does not appear to be due to COPD. She will need further workup to exclude other causes of respiratory muscle weakness. Regarding right pleural effusion with possible empyema, the patient had evidence of a small pleural effusion on 10/17. On subsequent chest imaging studies the pleural effusion increased and was also associated with pulmonary edema. Unfortunately no pleural fluid analysis was ordered. Final culture report pending. Will continue with current antibiotic regimen for possible empyema although the x-ray findings are not consistent with empyema. Plan: Patient will be started on BiPAP support as recent blood gases showed worsening hypercapnia. Will proceed with chest CT without contrast to assess for pulmonary edema. Family may consider comfort measures following the studies. (3) Respiratory acidosis: Code(s): E87.29 - Other acidosis Status: Acute (4) CHF (congestive heart failure): Code(s): I50.9 - Heart failure, unspecified Status: Acute (5) Acute respiratory failure with hypoxia: Code(s): J96.01 - Acute respiratory failure with hypoxia Status: Acute (6) Afib: Code(s): I48.91 - Unspecified atrial fibrillation Status: Acute History of Present Illness History of Present Illness Consult date: 10/29/22 Chief complaint: respiratory failure/chf Narrative: This 76-year-old female was brought into the emergency room at [facility] approximately 7 days ago after she developed a respiratory distress at [facility]. Currently the patient is in the intensive care unit receiving supplemental oxygen via high-flow nasal cannula. This report is based on information obtained after talking to the patient's family and reviewing patient's chart. According to the family she was in her usual state of health until approximately 1 month ago when she started to have a shortness of breath and lower extremity edema. Patient became acutely short of breath and was transferred to [facility] where she was intubated and mechanically ventilated in the intensive care unit. Reportedly she received treatment for pneumonia and congestive heart failure. The patient was extubated tari
[2022-10-29 15:26] LABS: Alveolar/Arterial O2 Gradient 83.4 mmHg; Base Excess ABG 4.1 mEq/l (+/-2.0); Fractional Inspired Oxygen 35 %; HCO3 ABG 30.4 mEq/l (22.0-26.0); Oxygen Content ABG 14.8 %vol (16.0-22.0); Oxygen Saturation ABG 97.5 % (95.0-100.0); Oxyhemoglobin 96.4 % THb (90.0-100.0); PCO2 ABG 54.1 mmHg (35.0-45.0); PO2 ABG 103.3 mmHg (80.0-100.0); PO2 FiO2 Ratio Arterial Blood 2.95 %; Total Hemoglobin 10.8 g/dL (12.0-18.0); pH ABG 7.367 (7.350-7.450)
[2022-10-29 15:27] LABS: Modified Allen's Test Pass; Site Drawn LEFT RADIAL
[2022-10-29 15:28] LABS: Device HIGH FLOW THERAPY
--- NOTE | 2022-10-29 15:49 | PCSTNOTE ---
Please refer to the Bedside Swallow Evaluation in the EMR. Please note, silent aspiration cannot be ruled out at bedside.
[2022-10-29 16:00] LABS: Creatine Kinase 20 U/L (30-135)
[2022-10-29 16:32] LABS: Thyroid Stimulating Hormone 0.881 uIU/mL (0.465-4.680)
[2022-10-29 19:03] LABS: Glucose Point of Care 125 mg/dl (65-105)
[2022-10-29 20:42] LABS: Glucose Point of Care 136 mg/dl (65-105)
[2022-10-29] MEDS: INSULIN ASPART (*BKC) 100 UNITS/ML SUB-Q (23:16)
[2022-10-29 23:32] LABS: Glucose Point of Care 211 mg/dl (65-105)
[2022-10-30] VITALS (28 sets, daily range): BP systolic 112–148; BP diastolic 40–63; PULSE 53–81; RESP 14–40; TEMP 36.5–37.8; O2SAT 91–98
[2022-10-30] MEDS: LEVALBUTEROL NEB 1.25 MG/3 ML 0.63 MG INHALATION ×4 (02:42→20:43)
[2022-10-30] MEDS: IPRATROPIUM BR 0.02% INH SOLN 0.5 MG/2.5 ML VIAL INHALATION ×4 (02:42→20:43)
[2022-10-30 03:27] LABS: Glucose Point of Care 131 mg/dl (65-105)
--- NOTE | 2022-10-30 05:45 | PCRCNOTE ---
PT refused ABG at this time. Pt stated that it hurts and she does not want it. RN notified.
[2022-10-30 06:00] LABS: Basophils Percent Auto 0.6 % (0.2-1.2); Eosinophils Absolute Auto 0.5 K/mm3 (0-0.3); Eosinophils Percent Auto 10.2 % (0-4.4); Hematocrit 28.3 % (37.0-47.0); Hemoglobin 8.3 g/dL (12.0-15.0); Immature Granulocyte Absolute 0.06 K/mm3 (0.00-0.031); Immature Granulocyte Percent A 1.2 % (0-0.5); Lymphocytes Absolute Auto 0.51 K/mm3 (0.9-3.2); Lymphocytes Percent Auto 10.4 % (18.3-44.2); Mean Corpuscular HGB Conc 29.3 g/dl (32-36); Mean Corpuscular Hemoglobin 31.1 pg (26-34); Mean Platelet Volume 10.3 fl (7.4-10.4); Monocytes Absolute Auto 0.6 K/mm3 (0.1-0.6); Monocytes Percent Auto 12.6 % (2.6-8.5); Neutrophils Absolute Auto 3.2 K/mm3 (1.3-6.7); Platelet Count Result 156 k/mm3 (150-375); Red Blood Count 2.67 M/mm3 (4.2-5.4); Red Cell Distribution Width 15.7 % (11.5-14.5); White Blood Count 4.9 K/mm3 (4.5-10.0)
[2022-10-30 06:14] LABS: Alanine Aminotransferase 23 U/L (6-35); Albumin Level 3.3 g/dL (3.5-5.1); Alkaline Phosphatase 65 U/L (38-126); Anion Gap 5 mmol/L (8-16); Aspartate Amino Transferase 21 U/L (14-36); Bilirubin,Total 0.7 mg/dL (0.2-1.3); Blood Urea Nitrogen 28 mg/dL (7-17); Calcium 8.6 mg/dL (8.4-10.2); Carbon Dioxide 32 mmol/L (22-30); Chloride 101 mmol/L (98-107); Estimated CRCL calculation 49 ml/min; Estimated Glomerular Filt Rate 54; Glucose 132 mg/dL (65-110); Magnesium 2.2 mg/dL (1.6-2.3); Phosphorus 3.8 mg/dL (2.5-4.5); Potassium 3.7 mmol/L (3.4-5.0); Sodium 138 mmol/L (137-145)
[2022-10-30] MEDS: CENTRAL LINE FLUSH 10 ML IV PUSH ×3 (06:19→20:08)
[2022-10-30 06:27] LABS: Platelet Estimate Adequate (Adequate)
[2022-10-30 06:28] LABS: Acanthocytes 1+ (NORMAL); Anisocytosis 1+ (NORMAL); Burr Cells 1+ (NORMAL); Schistocytes Rare (NORMAL)
[2022-10-30] MEDS: BUDESONIDE RESPULE NEB 0.5 MG/2 ML AMP INHALATION (07:05)
--- NOTE | 2022-10-30 09:00 | PM.PNPUL ---
Progress Note: A&P Assessment and Plan (1) Respiratory failure: Code(s): J96.90 - Respiratory failure, unspecified, unspecified whether with hypoxia or hypercapnia Status: Acute Assessment and Plan: Respiratory status more or less unchanged over the last 24 hours although patient appears more awake this a.m.. Chest CT done last night showed clear lungs and small pleural effusion or right. She had marked cardiomegaly. She still on antibiotics for possible empyema. Chest x-ray done today showed a small pleural effusion on right. Overall presentation not quite typical for empyema. Await final pleural fluid cultures. TSH within normal range, CPK also normal. As stated patient has evidence of a generalized muscle weakness including respiratory muscles. This could be related to congestive heart failure. Critical illness polyneuropathy is also possibility as patient was on ventilator for approximately 2 weeks. She is still dependent on BiPAP support to maintain normocapnia. Plan: Continue with current antibiotics for now, BiPAP support at night and p.r.n. during the day. DC Pulmicort nebulized treatment. Continue with short-acting bronchodilators p.r.n. out of bed to chair. Physical therapy bedside. (2) CHF (congestive heart failure): Code(s): I50.9 - Heart failure, unspecified Status: Acute (3) Type 2 diabetes mellitus: Code(s): E11.9 - Type 2 diabetes mellitus without complications Status: Acute (4) Afib: Code(s): I48.91 - Unspecified atrial fibrillation Status: Acute Subjective Date/time seen: 10/30/22 09:00 Interval history: Patient has no new respiratory symptoms this a.m.. Used BiPAP support last night. IPAP pressure increased to 17 because of low tidal volumes. Currently on high-flow nasal cannula. Afebrile. Had some yes generalized itching but no skin rash last night. Review of Systems Review of Systems: All systems reviewed & are unremarkable except as noted in HPI and below (HPI and below) Exam Narrative: GENERAL APPEARANCE: Well developed, well nourished, alert and cooperative, appears to be moderate respiratory distress while sitting up in bed, shallow respirations raspy voice. SKIN: Inspection of the skin reveals no rashes, ulcerations or petechiae. HEENT: Sclerae anicteric and conjunctivae pink and moist. Extraocular movements were intact and pupils were equal, round. NECK: Supple. There was no thyroid enlargement, and no tenderness, or masses were felt. JVD present LUNGS: Crackles at bases posteriorly CARDIAC: There was regular rate and rhythm without any murmurs. ABDOMEN: Soft and nontender with normal bowel sounds. There was no organomegaly. LYMPH NODES: No lymphadenopathy was appreciated in the neck EXTREMITIES: No cyanosis, clubbing; trace pedal edema NEUROLOGIC: Awake answering questions moving all extremities. Objective Data Vital Signs Vital Signs: Vital Signs - 24 hr 10/29/22 09:30 10/29/22 12:44 10/29/22 12:00 Temperature Pulse Rate 133 H Respiratory Rate Blood Pressure Pulse Oximetry 96 95 Oxygen Delivery High Flow Therapy with Na High Flow Therapy with Na Oxygen Flow Rate 50 50 Fraction of Inspired Oxygen 35 35 10/29/22 10:00 10/29/22 10:00 10/29/22 12:00 Temperature Pulse Rate 109 H 109 H 67 Respiratory Rate 29 H Blood Pressure 110/71 Pulse Oximetry 95 Oxygen Delivery Oxygen Flow Rate Fraction of Inspired Oxygen 10/29/22 12:00 10/29/22 14:00 10/29/22 14:00 Temperature Pulse Rate 71 73 73 Respiratory Rate 21 H 34 H Blood Pressure 122/50 L 143/52 H Pulse Oximetry 95 95 Oxygen Delivery Oxygen Flow Rate Fraction of Inspired Oxygen 10/29/22 15:18 10/29/22 16:16 10/29/22 16:28 Temperature Pulse Rate 71 69 69 Respiratory Rate 30 H 21 H 20 Blood Pressure Pulse Oximetry 95 97 95 Oxygen Delivery BiPAP BiPAP BiPAP Oxygen Flow Rate Fraction o
[2022-10-30] MEDS: CEFEPIME 1 GM/NS 50 ML 1 GM/50 ML BAG IVPB ×2 (09:02→20:08)
[2022-10-30 09:05] LABS: Glucose Point of Care 153 mg/dl (65-105)
[2022-10-30] MEDS: PANTOPRAZOLE SODIUM IV 40 MG VIAL IV PUSH ×2 (09:06→20:00)
[2022-10-30] MEDS: METOPROLOL TARTRATE 12.5 MG TABLET PO ×2 (09:48→20:00)
[2022-10-30] MEDS: CITALOPRAM HYDROBROMIDE 10 MG TABLET PO (09:48)
--- NOTE | 2022-10-30 10:36 | PCSTNOTE ---
Please refer to the Bedside Swallow Evaluation in the EMR. Please note, silent aspiration cannot be ruled out at bedside.
[2022-10-30 12:27] LABS: Glucose Point of Care 161 mg/dl (65-105)
--- NOTE | 2022-10-30 13:33 | PM.IMPN ---
Progress Note: A&P Assessment and Plan (1) Acute respiratory failure with hypoxia: Code(s): J96.01 - Acute respiratory failure with hypoxia Status: Acute Assessment and Plan: Multifactorial acute respiratory failure likely related to CHF exacerbation and/or COPD exacerbation -10/22/2022: Intubated in the ER upon arrival - 10/28: Extubated after multiple days a weaning trial. Placed on BiPAP. -CT chest 10/29 - Small right and trace left pleural effusions with associated atelectasis in the dependent lungs, right greater than left; Cardiomegaly. -CXR this morning: Central congestive change and mild pulmonary edema. -10/22:Blood cultures and MRSA screen negative -10/25:Sputum cultures : Normal oropharyngeal john -10/28:Pleural fluid NGTD Continue BiPAP at night and try to wean off during the day as she toelrates Patient started on cefepime and vancomycin. 10/26 vancomycin was discontinued but resumed on 10/28 Continue bronchodilators. Discussed with ST who recommended Pureed diet with thin liquids. Start diet. Aspiration precautions Appreciate pulmonary input Will need BiPAP at home Discussed hospice with patietn and family. All questions answered. (2) Pleural effusion: Code(s): J90 - Pleural effusion, not elsewhere classified Status: Acute Assessment and Plan: Chest x-ray showed right effusion. CT chest on presentation also showed right pleural effusion. 10/28 Patient had ultrasound-guided thoracentesis done and only 300 mL of fluid was removed. LDH and glucose is pending but Gram stain is showing Gram-positive cocci. ?Parapneumonic effusion. CT scan done earlier did not show any loculation. Will continue vancomycin and cefepime at this time. Consulted Pulmonary and discussed case with Dr Gaitan yesterday (3) GI bleed: Code(s): K92.2 - Gastrointestinal hemorrhage, unspecified Status: Acute Assessment and Plan: Patient with large amount of coffee-ground drainage from OG tube on admission -hemoglobin dropped from 10.0 on admission to 9.1 on 10/23 -apixaban was held -since then the NG drainage had become bilious -Hgb dropped to 8 range but remained stable -she is on Protonix IV q.12 hours which will be continue -hemoglobin stable -continue SCDs (4) Afib: Code(s): I48.91 - Unspecified atrial fibrillation Status: Acute Assessment and Plan: Patient has a history of AFib, on apixaban at the rehab center -hold apixaban due to coffee-ground drainage through her OG tube on admission, drop in hemoglobin -continue low-dose beta-tim -Currently in sinus rhythm, rate controlled. (5) Encephalopathy: Code(s): G93.40 - Encephalopathy, unspecified Status: Acute Assessment and Plan: RESOLVED. Patient now awake alert oriented x4 Encephalopathy likely related to hypercapnia, hypoxia Follow (6) Type 2 diabetes mellitus: Code(s): E11.9 - Type 2 diabetes mellitus without complications Status: Acute Assessment and Plan: The patient's blood glucose was reviewed on 10/30 Glucose remains well controlled. Continue AccuCheks covering with sliding scale. Hypoglycemia protocol available as needed. Continue to monitor. (7) CHF (congestive heart failure): Code(s): I50.9 - Heart failure, unspecified Status: Acute Assessment and Plan: Patient presented with acute respiratory failure with chest x-ray showed pulmonary edema. BNP 3120. 10/22 Echo - EF 65-70%, moderately increased LV wall thickness, LV diastolic function indeterminate. Basal anteroseptal and mid anteroseptal wall hypokinetic, left atrial chamber severely enlarged, moderate aortic valve sclerosis, mild to moderate mitral valve regurgitation, mild pulmonary hypertension with RVSP of 38 mmHg lasix stopped. (8) Hypertension: Code(s): I10 - Essential (primary) hypertension Status: Acute Assessment and Plan: Yessy
[2022-10-30 16:56] LABS: Glucose Point of Care 132 mg/dl (65-105)
[2022-10-30 18:36] LABS: Vancomycin Trough 24.8 ug/mL (10.0-20.0)
[2022-10-30] MEDS: ATORVASTATIN 40 MG TABLET PO (20:00)
[2022-10-30 21:15] LABS: Glucose Point of Care 158 mg/dl (65-105)
[2022-10-30 23:35] LABS: Glucose Point of Care 143 mg/dl (65-105)
[2022-10-31] VITALS (16 sets, daily range): BP systolic 99–137; BP diastolic 53–64; PULSE 61–139; RESP 10–30; TEMP 36.9–37.2; O2SAT 94–98
[2022-10-31] MEDS: IPRATROPIUM BR 0.02% INH SOLN 0.5 MG/2.5 ML VIAL INHALATION ×2 (01:23→08:37)
[2022-10-31] MEDS: LEVALBUTEROL NEB 1.25 MG/3 ML 0.63 MG INHALATION ×2 (01:23→08:37)
[2022-10-31 03:17] LABS: Glucose Point of Care 152 mg/dl (65-105)
[2022-10-31] MEDS: VANCOMYCIN 1,000 MG/NS 250 ML 1,000 MG/250 ML BAG 250 MG IVPB (05:16)
[2022-10-31] MEDS: CENTRAL LINE FLUSH 10 ML IV PUSH (05:16)
[2022-10-31 05:34] LABS: Basophils Percent Auto 0.6 % (0.2-1.2); Eosinophils Absolute Auto 0.5 K/mm3 (0-0.3); Eosinophils Percent Auto 10.8 % (0-4.4); Hematocrit 30.4 % (37.0-47.0); Hemoglobin 8.7 g/dL (12.0-15.0); Immature Granulocyte Absolute 0.06 K/mm3 (0.00-0.031); Immature Granulocyte Percent A 1.3 % (0-0.5); Lymphocytes Absolute Auto 0.67 K/mm3 (0.9-3.2); Lymphocytes Percent Auto 14.1 % (18.3-44.2); Mean Corpuscular HGB Conc 28.6 g/dl (32-36); Mean Corpuscular Hemoglobin 30.7 pg (26-34); Mean Corpuscular Volume 107.4 fl (80-100); Mean Platelet Volume 10.2 fl (7.4-10.4); Monocytes Absolute Auto 0.7 K/mm3 (0.1-0.6); Monocytes Percent Auto 13.7 % (2.6-8.5); Neutrophils Absolute Auto 2.8 K/mm3 (1.3-6.7); Neutrophils Percent Auto 59.5 % (45.5-73.1); Platelet Count Result 102 k/mm3 (150-375); Red Blood Count 2.83 M/mm3 (4.2-5.4); Red Cell Distribution Width 15.3 % (11.5-14.5); White Blood Count 4.7 K/mm3 (4.5-10.0)
--- NOTE | 2022-10-31 05:47 | PCRCNOTE ---
Pt refused ABG. RN aware
[2022-10-31 05:50] LABS: Alanine Aminotransferase 22 U/L (6-35); Albumin Level 3.4 g/dL (3.5-5.1); Alkaline Phosphatase 67 U/L (38-126); Anion Gap 6 mmol/L (8-16); Aspartate Amino Transferase 20 U/L (14-36); Bilirubin,Total 0.7 mg/dL (0.2-1.3); Blood Urea Nitrogen 27 mg/dL (7-17); Calcium 8.7 mg/dL (8.4-10.2); Carbon Dioxide 27 mmol/L (22-30); Chloride 102 mmol/L (98-107); Estimated CRCL calculation 49 ml/min; Estimated Glomerular Filt Rate 54; Glucose 160 mg/dL (65-110); Magnesium 2.2 mg/dL (1.6-2.3); Phosphorus 3.4 mg/dL (2.5-4.5); Potassium 3.6 mmol/L (3.4-5.0); Sodium 135 mmol/L (137-145)
[2022-10-31 06:13] LABS: Macrocytosis 1+ (NORMAL)
[2022-10-31 06:15] LABS: Burr Cells 1+ (NORMAL); Schistocytes 1+ (NORMAL)
[2022-10-31] MEDS: METOPROLOL TARTRATE 12.5 MG TABLET PO (07:46)
[2022-10-31] MEDS: FUROSEMIDE 20 MG TABLET PO (07:47)
[2022-10-31] MEDS: PANTOPRAZOLE SODIUM IV 40 MG VIAL IV PUSH (07:47)
[2022-10-31] MEDS: CITALOPRAM HYDROBROMIDE 10 MG TABLET PO (07:47)
[2022-10-31] MEDS: THERAPEUTIC MULTIVITAMINS/MINERALS TAB (*BKC) 1 TABLET PO (07:47)
[2022-10-31] MEDS: CEFEPIME 1 GM/NS 50 ML 1 GM/50 ML BAG IVPB (07:48)
[2022-10-31] MEDS: MINERAL OIL/WHITE PETROLATUM OINTMENT 1 APPLIC EACH EYE (07:49)
[2022-10-31] MEDS: polyethylene glycoL 3350 17 GM POWD.PACK PO (07:50)
[2022-10-31 08:17] LABS: Glucose Point of Care 155 mg/dl (65-105)
[2022-10-31] MEDS: FLUTICASONE/SALMETEROL 115-21 MCG INHALER 1 PUFF 2 PUFF INHALATION (08:37)
--- NOTE | 2022-10-31 09:10 | PM.DS ---
DS: Admitting Diagnosis Discharge Date 10/31/22 Admitting Diagnosis Altered mental status DS: Discharge Diagnosis Discharge Diagnosis (1) Acute respiratory failure with hypoxia: Code(s): J96.01 - Acute respiratory failure with hypoxia Status: Acute (2) Pleural effusion: Code(s): J90 - Pleural effusion, not elsewhere classified Status: Acute (3) GI bleed: Code(s): K92.2 - Gastrointestinal hemorrhage, unspecified Status: Acute (4) Afib: Code(s): I48.91 - Unspecified atrial fibrillation Status: Acute (5) Encephalopathy: Code(s): G93.40 - Encephalopathy, unspecified Status: Acute (6) Type 2 diabetes mellitus: Code(s): E11.9 - Type 2 diabetes mellitus without complications Status: Acute (7) CHF (congestive heart failure): Code(s): I50.9 - Heart failure, unspecified Status: Acute (8) Hypertension: Code(s): I10 - Essential (primary) hypertension Status: Acute (9) COPD (chronic obstructive pulmonary disease): Code(s): J44.9 - Chronic obstructive pulmonary disease, unspecified Status: Acute (10) Hyperlipidemia: Code(s): E78.5 - Hyperlipidemia, unspecified Status: Acute (11) GERD (gastroesophageal reflux disease): Code(s): K21.9 - Gastro-esophageal reflux disease without esophagitis Status: Acute DS: Summary Hospital Course Reason for hospitalization: 76yo female with COPD, anxiety, diabetes, blood clots in leg and HTN presented with SOB and altered mental status.? Presented to [facility] ED on 09/29/22 with shortness of breath on going 3-5 days.? reports she had been going in and out of consciousness.? Upon arrival she had altered mental status.? EMS found her SpO2 at 40% on room air. She was intubated and admitted to ICU. She was extubated 10/08 and sent to [facility] on 10/12/22. She was not on BiPAP while at [facility]. Patient sent over from [facility] on 10/22 for AMS and found to have acute hypercapnic/hypoxic respiratory failure, encephalopathy, pulmonary edema/CHF exacerbation. She was intubated on admission. Please see H&P for details. Hospital Course: Patient with acute hypercapnic/hypoxic respiratory failure. [place] to be multifactorial acute respiratory failure likely related to CHF exacerbation and/or COPD exacerbation and/or NATHAN. Intubated in the ER upon arrival 10/22. Extubated after multiple days a weaning trial on 10/28 and placed on BiPAP. Patient was insistent on not being re-intubated. CT chest 10/29 -?Small right and trace left pleural effusions with associated atelectasis in the dependent lungs, right greater than left; Cardiomegaly. -10/22:Blood cultures and MRSA screen negative -10/25:Sputum cultures normal oropharyngeal john -10/28:Thoracentesis with removal of 350mL of dark reddish fluid. Pleural fluid Cx NGTD Pulmonary was involved in her care. Able to wean BiPAP to nighttime use and prn during the day. Patient started on cefepime and vancomycin. 10/26 vancomycin was discontinued but resumed on 10/28. Seen by speech therapy who recommended Pureed diet with thin liquids. Aspiration precautions ordered. Patient with large amount of coffee-ground drainage from OG tube on admission. Hemoglobin dropped from 10.0 on admission to 9.1. Hgb dropped to 8 range but remained stable since. Apixaban was held and started on Protonix. NG drainage became bilious before this was removed. Patient has a history of AFib and was on apixaban at the rehab center. We continued low-dose beta-tim. She remained in sinus rhythm. She had encephalopathy. CT brain showing no acute findings. [place] likely related to hypercapnia, hypoxia. Patient now awake, alert and oriented x4. Patient presented with acute respiratory failure with chest x-ray showed pulmonary edema. BNP 3120. Echo (10/22) showing EF 65-70% with indeterminate diastolic function, moderately increased LV wall thickness, LV diastolic function indeterminate.? Basa
--- NOTE | 2022-10-31 09:59 | PM.PNPUL ---
Progress Note: A&P Assessment and Plan (1) Respiratory failure: Code(s): J96.90 - Respiratory failure, unspecified, unspecified whether with hypoxia or hypercapnia Status: Acute Assessment and Plan: Respiratory status significantly improved over the last 2 days. The patient has been tolerating BiPAP support well. Review of diagnostic studies showed that chest x-ray from today showed increased lung volumes small pleural effusions bilaterally but no lung congestion. Total bicarbonate level within normal range. She has no leukocytosis. She is still on cefepime. Patient is being discharged home on hospice care. Case was discussed with the hospitalist. She will continue with BiPAP support using new settings, which are AVAPS. Pleural fluid culture negative so far. Plan. The patient will remain on BiPAP/AVAPS and supplemental oxygen at home. I would continue with Augmentin for another 7 days. Will sign off please call with any questions. (2) CHF (congestive heart failure): Code(s): I50.9 - Heart failure, unspecified Status: Acute (3) Type 2 diabetes mellitus: Code(s): E11.9 - Type 2 diabetes mellitus without complications Status: Acute (4) Afib: Code(s): I48.91 - Unspecified atrial fibrillation Status: Acute Subjective Date/time seen: 10/31/22 09:59 Interval history: Patient has no new respiratory symptoms. Tolerating BiPAP well at night. Sitting up in bed on supplemental oxygen. Review of Systems Review of Systems: All systems reviewed & are unremarkable except as noted in HPI and below (HPI and below) Exam Narrative: GENERAL APPEARANCE: Well developed, well nourished, alert and cooperative, appears to be moderate respiratory distress while sitting up in bed. Looks a lot stronger today. SKIN: Inspection of the skin reveals no rashes, ulcerations or petechiae. HEENT: Sclerae anicteric and conjunctivae pink and moist. Extraocular movements were intact and pupils were equal, round. NECK: Supple. There was no thyroid enlargement, and no tenderness, or masses were felt. JVD present LUNGS: Crackles at bases posteriorly CARDIAC: There was regular rate and rhythm without any murmurs. ABDOMEN: Soft and nontender with normal bowel sounds. There was no organomegaly. LYMPH NODES: No lymphadenopathy was appreciated in the neck EXTREMITIES: No cyanosis, clubbing; no pedal edema NEUROLOGIC: Awake answering questions moving all extremities. Objective Data Vital Signs Vital Signs: Vital Signs - 24 hr 10/30/22 10:00 10/30/22 10:00 10/30/22 10:26 Temperature Pulse Rate 72 72 75 Respiratory Rate 22 H 22 H Blood Pressure 141/63 H Pulse Oximetry 94 95 Oxygen Delivery High Flow Nasal Cannula Oxygen Flow Rate 50 Fraction of Inspired Oxygen 35 10/30/22 12:00 10/30/22 12:00 10/30/22 12:00 Temperature 37.8 C H Pulse Rate 60 60 60 Respiratory Rate 20 20 Blood Pressure 122/52 L Pulse Oximetry 95 95 Oxygen Delivery BiPAP Oxygen Flow Rate Fraction of Inspired Oxygen 30 10/30/22 13:05 10/30/22 13:05 10/30/22 13:15 Temperature Pulse Rate 66 66 67 Respiratory Rate 22 H 22 H 24 H Blood Pressure Pulse Oximetry 94 Oxygen Delivery High Flow Nasal Cannula Oxygen Flow Rate 50 Fraction of Inspired Oxygen 35 10/30/22 14:00 10/30/22 16:10 10/30/22 16:00 Temperature Pulse Rate 65 70 70 Respiratory Rate 20 Blood Pressure Pulse Oximetry 96 Oxygen Delivery High Flow Nasal Cannula Oxygen Flow Rate 50 Fraction of Inspired Oxygen 35 10/30/22 16:00 10/30/22 16:00 10/30/22 16:00 Temperature 37.3 C 36.9 C Pulse Rate 70 70 71 Respiratory Rate 34 H 34 H 24 H Blood Pressure 147/59 H 148/59 H Pulse Oximetry 94 94 96 Oxygen Delivery High Flow Therapy with Na Oxygen Flow Rate 50 Fraction of Inspired Oxygen 35 10/30/22 18:00 10/30/22 20:00 10/30/22 20:00 Temperature 37.4 C Pulse Rate 69 68
[2022-10-31] MEDS: INSULIN ASPART (*BKC) 100 UNITS/ML SUB-Q (12:47)
[2022-10-31 12:49] LABS: Glucose Point of Care 218 mg/dl (65-105)
--- NOTE | 2022-11-05 09:11 | PC.NURSE ---
Pleural fluid cx is negative. Dr. Rahel haines.
[2022-11-07 12:52] LABS: Glucose Pleural Fluid 129 mg/dL
== END 2022-10-31 13:55 | disposition hospice, home (50) | DRG 207 ==
LOC: ANHED 12:53 → ANHICU 13:39
PROVIDERS: Internal Medicine; Internal Medicine Pulmonary Disease; Student in an Organized Health Care Education/Training Program; Admitting Provider Family Medicine; Emergency Provider Emergency Medicine; PCP Internal Medicine; Visit Provider Internal Medicine
DX: J96.01 Acute respiratory failure with hypoxia (principal); J91.8 Pleural effusion in other conditions classified elsewhere; K92.2 Gastrointestinal hemorrhage, unspecified; G93.40 Encephalopathy, unspecified; J90 Pleural effusion, not elsewhere classified; I13.0 Hypertensive heart and chronic kidney disease with heart failure and stage 1 through stage 4 chronic kidney disease, or unspecified chronic kidney disease; I48.20 Chronic atrial fibrillation, unspecified; J96.02 Acute respiratory failure with hypercapnia; E11.22 Type 2 diabetes mellitus with diabetic chronic kidney disease; E78.5 Hyperlipidemia, unspecified; F41.9 Anxiety disorder, unspecified; G47.33 Obstructive sleep apnea (adult) (pediatric); I50.9 Heart failure, unspecified; J44.9 Chronic obstructive pulmonary disease, unspecified; K21.9 Gastro-esophageal reflux disease without esophagitis; N18.9 Chronic kidney disease, unspecified; Z79.84 Long term (current) use of oral hypoglycemic drugs; Z79.82 Long term (current) use of aspirin; Z86.718 Personal history of other venous thrombosis and embolism; Z79.01 Long term (current) use of anticoagulants; Z20.822 Contact with and (suspected) exposure to COVID-19; Z66 Do not resuscitate
CPT/HCPCS: 31500; 32555; 36415; 36569; 36600; 51702; 70450; 71045; 71250; 80053; 80202; 81001; 82375; 82550; 82805; 82945; 82948; 83036; 83050; 83605; 83615; 83735; 83880; 84100; 84443; 84478; 84484; 85014; 85018; 85025; 85610; 85730; 87040; 87070; 87075; 87081; 87205; 87637; 92610; 93005; 93306; 94002; 94003; 94640; 96365; 96366; 96375; 99291; A9270; C1751; C8929; C9113; J0131; J0330; J0692; J1120; J1200; J1815; J1940; J2250; J2704; J2765; J3010; J3370; J3475; J7030; J7040; Q9957